=== PATIENT | male | born 1955 | race Caucasian/White ===

== ENCOUNTER 2018-07-26 18:43 | Inpatient (IN) | payer OTHER ==
[~2018-07-26] VITALS: Ht 188 cm; Wt 120.2 kg
--- NOTE | ~2018-07-26 | EKG ---
[address] [address] ELECTROCARDIOGRAM REPORT Name: MUKUL VENTURA JR Room #: 219-[facility] IN .R.#: [id number] Admission: 07/26/18 Attend Phys: Maye Shepherd Discharge: 07/29/18 Date of : 51 Report #: [id number] THIS REPORT FOR: //name// [facility] Test Date: 2018-07-28 Test Time: 11:52:48 Pat Name: MUKUL VENTURA Department: Room: 219 P Gender: M Rail Gang Supervisor: KRISTEL : 1955 Requested By: Maye Shepherd Order Number: [id number] MD: Luis Enrique Timmons Measurements Intervals Leon Rate: 77 P: KS: QRS: -67 QRSD: 167 T: -3 QT: 410 QTc: 465 Interpretive Statements Atrial fibrillation RBBB and LAFB Compared to ECG 06/24/2018 10:37:07 Electronically Signed On 08-02-2018 16:51:33 CDT by Luis Enrique Timmons [email or web address] <ELECTRONICALLY SIGNED> By: Luis Enrique Timmons MD 08/02/18 165 115 115 Luis Enrique Timmons MD /LAURA
--- NOTE | ~2018-07-26 | EKG ---
[address] [address] ELECTROCARDIOGRAM REPORT Name: MUKUL VENTURA Room #: 219-P [facility] IN ..#: [id number] Admission: 07/26/18 Attend Phys: Maye Shepherd Discharge: 07/29/18 Date of : 51 Report #: [id number] THIS REPORT FOR: //name// [facility] ED Test Date: 2018-07-26 Test Time: 19:18:44 Pat Name: MUKUL VENTURA Department: Room: [facility] Gender: M Sample Puller: MZOOK : 1955 Requested By: Bogdan Varela Order Number: [id number] MD: Luis Enrique Timmons Measurements Intervals [place] Rate: 94 P: NE: QRS: -74 QRSD: 163 T: 79 QT: 388 QTc: 486 Interpretive Statements Atrial fibrillation RBBB and LAFB Compared to ECG 06/24/2018 10:37:07 No significant changes Electronically Signed On 07-30-2018 14:39:54 CDT by Luis Enrique Timmons [email or web address] <ELECTRONICALLY SIGNED> By: Luis Enrique Timmons MD 07/30/18 1439 17 17 Luis Enrique Timmons MD /LAURA
--- NOTE | ~2018-07-26 | 2DMMODE ---
[facility] [place] [address] 2 D/M-MODE ECHOCARDIOGRAM Name: MUKUL VENTURA Room #: 251-P ADM IN M.R.#: [id number] Admission: 07/26/18 Attend Phys: Maye Whaley Discharge: Date of : 51 Date of Service: 07/27/18 1132 Report #: [id number] THIS REPORT FOR: //name// APPROVED REPORT Study performed: 07/27/2018 10:04:09 EXAM: Comprehensive 2D, Doppler, and color-flow Echocardiogram Patient Location: ICU Room #: [facility] Status: routine BSA: 2.45 HR: 69 bpm BP: 119/105 mmHg Other Information Study Quality: Adequate Indications ICD: Syncope Tricuspid Valve TR Peak Mario.: 2.49 m/s TR Peak Gr.: 24.78 mmHg PA Pressure: 30.00 mmHg Left Ventricle The left ventricle is normal size. There is normal left ventricular wall thickness. Left ventricular ejection fraction is moderately decreased. LVEF is 35%. Right Ventricle The right ventricle is normal size. The right ventricular systolic function is normal. Device lead is present in the right ventricle. Atria Left atrium is dilated. Right atrium is dilated. Device lead is present in the right atrium. Tricuspid Valve There is mild tricuspid regurgitation. The right atrial pressure is estimated at mmHg. There is mild pulmonary hypertension. [facility] [address] [place] [address] 2 D/M-MODE ECHOCARDIOGRAM Name: MUKUL VENTURA JR Room #: 251-P ADM IN M.R.#: [id number] Admission: 07/26/18 Attend Phys: Maye Whaley Discharge: Date of : 51 Date of Service: 07/27/18 1132 Report #: [id number] IVC is not well visualized. Pericardium Trace pericardial effusion. <Conclusion> The left ventricle is normal size. LVEF is 35-40%. The right ventricular systolic function is normal. Device lead is present in the right ventricle. Left atrium is dilated. Right atrium is dilated. Device lead is present in the right atrium. There is mild tricuspid regurgitation. The right atrial pressure is estimated at mmHg. There is mild pulmonary hypertension. Trace pericardial effusion. <ELECTRONICALLY SIGNED> By: Ceasar Cano MD 07/27/18 1132 31 31 Ceasar Cano MD /INF
[~2018-07-26 18:43] MED LIST: ANUSOL-HC25 MG RECTAL; ASPIRIN81 M2 PO; AUGMENTIN 875875 MG PO; CARVEDILOL12.5 MG PO; CARVEDILOL25 MG PO; CARVEDILOL6.25 MG PO; COREG25 MG PO; DIGOXIN125 MCG PO; LISINOPRIL2.5 MG PO; NOHOMEMEDICATIONS; NORCO 5-325 TA1 EACH PO; OXYCODONE HCL15 MG; PACERONE 200 M200 M1 PO; PRINIVIL5 MG PO; SPIRONOLACTONE25 M1 PO; TYLENOL325 MG PO; VITAMIN B-12500 MCG PO; XARELTO20 MG PO
[2018-07-26 18:53] VITALS: BP 117/67
[2018-07-26] MEDS ORDERED: CARVEDILOL6.25 M1 PO (19:03)
[2018-07-26] MEDS ORDERED: LISINOPRIL5 MG PO (19:03)
[2018-07-26] MEDS ORDERED: XARELTO20 MG PO (19:03)
[2018-07-26] MEDS ORDERED: CLONAZEPAM 0.50.5 M1 PO (19:03)
[2018-07-26 19:22] LABS: ABSOLUTE NEUTROPHILS 5.1 thou/uL (1.4-8.2); EOSINOPHILS 1.5 % (0.0-3.0); HEMATOCRIT 41.2 % (42.0-52.0); HEMOGLOBIN 14.5 gm/dL (14.0-18.0); LYMPHOCYTES 20.7 % (24.0-44.0); MCH 35.4 pg (26.0-34.0); MCHC 35.1 g/dL (28.0-37.0); MCV 100.9 fL (80.0-100.0); MONOCYTES 7.5 % (1.0-8.0); PLATELET COUNT 134 thou/uL (150-400); POLYS 69.3 % (36.0-66.0); RBC 4.08 mil/uL (4.50-6.00); RDW 14.5 % (10.5-14.5); WBC 7.3 thou/uL (4.0-11.0)
[2018-07-26 19:31] LABS: ANION GAP 11 mmol/L (7-16); BUN 13 mg/dL (7-18); CALCIUM 8.7 mg/dL (8.5-10.1); CHLORIDE 108 mmol/L (98-107); CO2 26 mmol/L (21-32); CREATININE 1.9 mg/dL (0.7-1.3); GLUCOSE 134 mg/dL (74-106); POTASSIUM 4.1 mmol/L (3.5-5.1); SODIUM 145 mmol/L (136-145)
[2018-07-26 19:39] LABS: ALBUMIN 3.5 g/dL (3.4-5.0); MAGNESIUM 2.1 mg/dL (1.8-2.4); SGOT 29 U/L (15-37); SGPT 50 U/L (30-65); TROPONIN-I <0.06 ng/mL (<0.06)
[2018-07-27] VITALS (8 sets, daily range): BP systolic 99–141; BP diastolic 58–105
[2018-07-27] MEDS ORDERED: B-121000 MC2 PO (00:01)
[2018-07-27 06:53] LABS: CALCIUM 8.4 mg/dL (8.5-10.1); CREATININE 1.5 mg/dL (0.7-1.3); POTASSIUM 3.8 mmol/L (3.5-5.1)
[2018-07-27 11:50] LABS: DIGOXIN 0.5 ng/mL (0.9-2.0)
[2018-07-28 04:19] LABS: ALBUMIN 3.2 g/dL (3.4-5.0); CALCIUM 8.5 mg/dL (8.5-10.1); CREATININE 1.2 mg/dL (0.7-1.3); PHOSPHORUS 3.7 mg/dL (2.5-4.9); POTASSIUM 4.1 mmol/L (3.5-5.1)
[2018-07-28 04:43] VITALS: BP 112/57
[2018-07-28 07:52] VITALS: BP 131/78
[2018-07-28] MEDS ORDERED: LISINOPRIL2.5 MG PO (08:47)
[2018-07-28 09:50] VITALS: BP 131/78
[2018-07-28 11:39] VITALS: BP 142/90
[2018-07-28 12:11] LABS: BE(vivo) 0.4 mmol/L (-2 to +3); HCO3 24.4 mmol/L (22.0-26.0); PCO2 37.1 mmHg (35.0-45.0); PO2 75.3 mmHg (80.0-100.0); pH 7.435 (7.360-7.450); sO2 95.6 % (92.0-98.0)
[2018-07-28 14:56] VITALS: BP 154/87
[2018-07-29 03:28] VITALS: BP 98/54
[2018-07-29 06:00] VITALS: BP 109/49
[2018-07-29 07:05] VITALS: BP 114/65
[2018-07-29 11:59] VITALS: BP 136/80
== END 2018-07-29 13:22 | disposition home or self-care (01) | DRG 682 ==
LOC: ER 18:43 → EROBS 19:55 → ICU 19:55 → 2N 07-27 15:24 → ENTRNSPT 07-29 13:01 → EDTRNSPTSTS 07-29 13:12 → 2N 07-29 13:22
PROVIDERS: Emergency Medicine; Hospitalist; Nurse Practitioner Family
DX: N17.9 Acute kidney failure, unspecified (principal); E43 Unspecified severe protein-calorie malnutrition; I42.9 Cardiomyopathy, unspecified; I50.9 Heart failure, unspecified; E86.0 Dehydration; F41.9 Anxiety disorder, unspecified; I11.0 Hypertensive heart disease with heart failure; I48.2 Chronic atrial fibrillation; R07.9 Chest pain, unspecified; D75.89 Other specified diseases of blood and blood-forming organs; G62.9 Polyneuropathy, unspecified; I25.10 Atherosclerotic heart disease of native coronary artery without angina pectoris; Z86.718 Personal history of other venous thrombosis and embolism; Z79.01 Long term (current) use of anticoagulants; Z79.899 Other long term (current) drug therapy; Z88.5 Allergy status to narcotic agent; Z82.49 Family history of ischemic heart disease and other diseases of the circulatory system; Z83.3 Family history of diabetes mellitus; Z68.34 Body mass index [BMI] 34.0-34.9, adult
CPT/HCPCS: 10081

== ENCOUNTER → 2019-01-19 | Outpatient (CLI) | payer OTHER ==
[~2019-01-19] MED LIST changes: +B-121000 MC2 PO; +CARVEDILOL6.25 M1 PO; +CLONAZEPAM 0.50.5 M1 PO; +LISINOPRIL5 MG PO
--- NOTE | 2019-01-19 10:03 | 2DMMODE ---
[facility] [place] [address] 2 D/M-MODE ECHOCARDIOGRAM Name: MUKUL VENTURA Room #: REG [facility]#: [id number] ������������� Admission: 01/19/19 ������������� Attend Phys: RICHIE Pina Discharge: ��� ������������� ��� Date of : 51 Date of Service: 01/19/19 1002 �� Report #: [id number] �������� ��������������������������������������������[id number] THIS REPORT FOR: //name// APPROVED REPORT Study performed: 01/19/2019 09:20:32 EXAM: Limited 2D, Doppler, and color-flow Echocardiogram Patient Location: Out-Patient Status: routine BSA: 2.51 HR: 62 bpm BP: 138/70 mmHg Rhythm: Atrial Fibrillation Other Information Study Quality: Adequate Indications Cardiomyopathy, Afib, ICD. 2D Dimensions IVSd: 11.39 (7-11mm) LVDd: 55.16 mm PWd: 10.05 (7-11mm) LVDs: 42.17 (25-40mm) Aortic Valve AoV Peak Mario.: 1.15 m/s AO Peak Gr.: 5.33 mmHg Tricuspid Valve TR Peak Mario.: 2.50 m/s RAP Estimate: 10.00 mmHg TR Peak Gr.: 25.01 mmHg PA Pressure: 35.00 mmHg Left Ventricle The left ventricle is normal size. There is normal left ventricular wall thickness. Left ventricular systolic function is moderately decreased. LVEF is 35-40%. Right Ventricle Right ventricle is dilated. Right ventricle is mildly hypokinetic. Device lead is present in the right ventricle. [facility] [address] [place] [address] 2 D/M-MODE ECHOCARDIOGRAM Name: MUKUL VENTURA Room #: REG [facility]#: [id number] ������������� Admission: 01/19/19 ������������� Attend Phys: RICHIE Pina Discharge: ��� ������������� ��� Date of : 51 Date of Service: 01/19/19 1002 �� Report #: [id number] �������� ��������������������������������������������[id number] Atria Left atrium is dilated. Right atrium is dilated. Aortic Valve Aortic valve is trileaflet. No aortic regurgitation is present. There is no aortic valvular stenosis. Mitral Valve The mitral valve is normal in structure. Moderate mitral regurgitation. Tricuspid Valve The tricuspid valve is normal in structure. Moderate tricuspid regurgitation. Estimated PAP is 35mmHg. Great Vessels IVC is dilated and collapses >50% with inspiration. Pericardium Trivial amount of pericardial fluid noted. <Conclusion> The left ventricle is normal size. LVEF is 35-40%. Right ventricle is dilated. Right ventricle is mildly hypokinetic. Device lead is present in the right ventricle. Left atrium is dilated. Right atrium is dilated. Aortic valve is trileaflet. The mitral valve is normal in structure. Moderate mitral regurgitation. The tricuspid valve is normal in structure. Moderate tricuspid regurgitation. Estimated PAP is 35mmHg. Trivial amount of pericardial fluid noted. ��������������������������������������������� <ELECTRONICALLY SIGNED> ���������������������������������������� By: Ceasar Cano MD ��������������������������������������������� 01/19/19 1002 1002 1002 Ceasar Cano MD /INF
== END ==
LOC: CV 08:38
DX: I08.1 Rheumatic disorders of both mitral and tricuspid valves (principal); I42.8 Other cardiomyopathies; I11.0 Hypertensive heart disease with heart failure; I50.20 Unspecified systolic (congestive) heart failure; I25.10 Atherosclerotic heart disease of native coronary artery without angina pectoris; I48.91 Unspecified atrial fibrillation

== ENCOUNTER 2019-02-16 11:49 | Emergency (ER) | payer OTHER ==
[~2019-02-16] VITALS: Ht 188 cm; Wt 125.2 kg
[2019-02-16 12:12] LABS: HEMATOCRIT 41.1 % (42.0-52.0); HEMOGLOBIN 14.3 gm/dL (14.0-18.0); MCH 34.1 pg (26.0-34.0); MCHC 34.7 g/dL (28.0-37.0); MCV 98.1 fL (80.0-100.0); RBC 4.19 mil/uL (4.50-6.00); RDW 13.9 % (10.5-14.5); WBC 5.9 thou/uL (4.0-11.0)
[2019-02-16 12:20] LABS: ANION GAP 9 mmol/L (7-16); BUN 23 mg/dL (7-18); CALCIUM 7.9 mg/dL (8.5-10.1); CHLORIDE 101 mmol/L (98-107); CO2 25 mmol/L (21-32); CREATININE 1.6 mg/dL (0.7-1.3); GLUCOSE 127 mg/dL (74-106); POTASSIUM 4.9 mmol/L (3.5-5.1); SODIUM 135 mmol/L (136-145)
[2019-02-16 12:28] LABS: ALBUMIN 3.7 g/dL (3.4-5.0); SGOT 27 U/L (15-37); SGPT 41 U/L (30-65); TOTAL BILIRUBIN 0.9 mg/dL (<0.1-1.0); TOTAL PROTEIN 6.9 g/dL (6.4-8.2); TROPONIN-I <0.06 ng/mL (<0.06)
[2019-02-16 12:40] VITALS: BP 110/56
[2019-02-16] MEDS ORDERED: CARVEDILOL12.5 MG PO ×2 (13:09→13:10)
[2019-02-16] MEDS ORDERED: LASIX 20 MG TAB20 MG (13:11)
[2019-02-16] MEDS ORDERED: LIDOCAINE1 EACH TRANSDERM (13:13)
--- NOTE | 2019-02-17 09:18 | EKG ---
[address] [address] [facility] [place] [address] ELECTROCARDIOGRAM REPORT Name: MUKUL VENTURA [id number] ������������������ Admission: 02/16/19 ������������������ Attend Phys: Discharge: 02/16/19 ������������������ Date of : 51 Report #: [id number] ����������������������������������������������������������������� [id number] THIS REPORT FOR: //name// [facility] ED Test Date: 2019-02-16 Test Time: 11:54:02 Pat Name: MUKUL VENTURA Department: Room: Gender: M Imaging Technician: BOB : 1955 Requested By: Kelsey Garcia Order Number: [id number] MD: Phill Juarez Measurements Intervals [place] Rate: 78 P: [place]: QRS: -78 QRSD: 163 T: -9 QT: 442 QTc: 504 Interpretive Statements Atrial fibrillation Right bundle branch block Left anterior hemiblock Compared to ECG 07/28/2018 11:52:48 No significant change was found Electronically Signed On 02-17-2019 9:17:51 CDT by Phill Juarez [email or web address] ��������������������������������������������� <ELECTRONICALLY SIGNED> ���������������������������������������� By: Phill Juarez MD, [facility] ��������������������������������������������� 02/17/19 0917 1154 1154 Phill Juarez MD, FACC /EPI
== END 2019-02-16 13:25 | disposition home or self-care (01) ==
LOC: ER 11:49
PROVIDERS: Physician Assistant
DX: R07.89 Other chest pain (principal); E83.51 Hypocalcemia; I10 Essential (primary) hypertension; F41.9 Anxiety disorder, unspecified; I48.91 Unspecified atrial fibrillation; Z88.5 Allergy status to narcotic agent

== ENCOUNTER 2019-03-25 15:15 | Emergency (ER) | payer OTHER ==
[~2019-03-25] VITALS: Ht 188 cm; Wt 124.7 kg
[~2019-03-25 15:15] MED LIST changes: +LASIX 20 MG TAB20 MG; +LIDOCAINE1 EACH TRANSDERM
[2019-03-25 15:38] LABS: ABSOLUTE NEUTROPHILS 5.2 thou/uL (1.4-8.2); BASOPHILS 0.5 % (0.0-2.0); EOSINOPHILS 1.9 % (0.0-3.0); HEMOGLOBIN 14.7 gm/dL (14.0-18.0); LYMPHOCYTES 23.4 % (24.0-44.0); MCH 33.8 pg (26.0-34.0); MCHC 34.3 g/dL (28.0-37.0); MCV 98.5 fL (80.0-100.0); MONOCYTES 8.3 % (1.0-8.0); PLATELET COUNT 150 thou/uL (150-400); POLYS 65.9 % (36.0-66.0); RBC 4.37 mil/uL (4.50-6.00); RDW 14.2 % (10.5-14.5)
[2019-03-25 15:44] LABS: ANION GAP 10 mmol/L (7-16); BUN 22 mg/dL (7-18); CALCIUM 8.9 mg/dL (8.5-10.1); CHLORIDE 101 mmol/L (98-107); CO2 28 mmol/L (21-32); CREATININE 1.6 mg/dL (0.7-1.3); GLUCOSE 109 mg/dL (74-106); POTASSIUM 4.6 mmol/L (3.5-5.1); SODIUM 139 mmol/L (136-145)
[2019-03-25 15:53] LABS: TROPONIN-I <0.06 ng/mL (<0.06)
[2019-03-25 17:46] VITALS: BP 146/93
--- NOTE | 2019-03-27 22:31 | EKG ---
[address] [address] ELECTROCARDIOGRAM REPORT Name: MUKUL VENTURA [facility] [id number] ������������������ Admission: 03/25/19 ������������������ Attend Phys: Discharge: 03/25/19 ������������������ Date of : 51 Report #: [id number] ����������������������������������������������������������������� [id number] THIS REPORT FOR: //name// [facility] ED Test Date: 2019-03-25 Test Time: 15:22:20 Pat Name: MUKUL VENTURA Department: Room: Gender: M Spud Sorter: KKODJOVI : 1955 Requested By: Agustín Kellogg Order Number: [id number] MD: Luis Enrique Timmons Measurements Intervals [place] Rate: 78 P: MS: QRS: -75 QRSD: 169 T: 31 QT: 439 QTc: 501 Interpretive Statements Atrial fibrillation RBBB and LAFB Compared to ECG 02/16/2019 11:54:02 No significant changes Electronically Signed On 03-27-2019 22:31:40 CDT by Luis Enrique Timmons [email or web address] ��������������������������������������������� <ELECTRONICALLY SIGNED> ���������������������������������������� By: Luis Enrique Timmons MD ��������������������������������������������� 03/27/19 2231 21 21 Luis Enrique Timmons MD /LAURA
== END 2019-03-25 17:48 | disposition home or self-care (01) ==
LOC: ER 15:15
PROVIDERS: Emergency Medicine
DX: R07.89 Other chest pain (principal); F41.9 Anxiety disorder, unspecified; I10 Essential (primary) hypertension; G62.9 Polyneuropathy, unspecified; I48.91 Unspecified atrial fibrillation; Z86.718 Personal history of other venous thrombosis and embolism; Z88.5 Allergy status to narcotic agent

== ENCOUNTER 2019-09-06 09:50 | Inpatient (IN) | payer OTHER ==
[~2019-09-06] VITALS: Ht 188 cm; Wt 111.2 kg
[2019-09-06 09:54] VITALS: BP 122/75
[2019-09-06 10:37] LABS: BE(vivo) -0.7 mmol/L (-2 to +3); HCO3 22.6 mmol/L (22.0-26.0); PCO2 32.8 mmHg (35.0-45.0); PO2 56.9 mmHg (80.0-100.0); pH 7.457 (7.360-7.450); sO2 91.3 % (92.0-98.0)
[2019-09-06 10:47] LABS: HEMATOCRIT 31.2 % (42.0-52.0); MCH 30.3 pg (26.0-34.0); MCHC 32.1 g/dL (28.0-37.0); MCV 94.5 fL (80.0-100.0); PLATELET COUNT 557 thou/uL (150-400); RDW 21.3 % (10.5-14.5); WBC 9.8 thou/uL (4.0-11.0)
[2019-09-06 11:00] LABS: ANION GAP 8 mmol/L (7-16); APTT 30.3 Seconds (24.5-32.8); BUN 9 mg/dL (7-18); CALCIUM 8.1 mg/dL (8.5-10.1); CHLORIDE 106 mmol/L (98-107); CO2 27 mmol/L (21-32); CREATININE 1.1 mg/dL (0.7-1.3); GLUCOSE 102 mg/dL (74-106); INR 1.1; POTASSIUM 4.2 mmol/L (3.5-5.1); PROTIME 11.3 Seconds (9.3-11.4); SODIUM 141 mmol/L (136-145)
[2019-09-06 11:10] LABS: ALBUMIN 2.4 g/dL (3.4-5.0); MAGNESIUM 1.6 mg/dL (1.8-2.4); SGOT 23 U/L (15-37); SGPT 20 U/L (30-65); TOTAL BILIRUBIN 0.4 mg/dL (<0.1-1.0); TOTAL PROTEIN 7.1 g/dL (6.4-8.2); TROPONIN-I <0.06 ng/mL (<0.06)
[2019-09-06 11:31] LABS: METAMYELOCYTES 1 %; MYELOCYTES 2 %; NUCLEATED RBCS 1 /100WBC
[2019-09-06 11:32] LABS: ANISOCYTOSIS 2+
[2019-09-06 11:33] LABS: POLYCHROMASIA OCCASIONAL
[2019-09-06] MEDS ORDERED: ACETAMINOPHEN650 M5 PO (11:35)
[2019-09-06] MEDS ORDERED: ACETYLCYST200 MG/1 M INH (11:36)
[2019-09-06] MEDS ORDERED: CALCIUM500 MG PO (11:37)
[2019-09-06] MEDS ORDERED: BUPROPION XL150 MG PO (11:37)
[2019-09-06] MEDS ORDERED: CATAPRES-TTS 20.2 MG TRANSDERM (11:38)
[2019-09-06] MEDS ORDERED: ELIQUIS5 MG PO (11:38)
[2019-09-06] MEDS ORDERED: IPRAT-ALBUT 0.5-3 ML (11:39)
[2019-09-06] MEDS ORDERED: MELATONIN3 M1 PO (11:40)
[2019-09-06] MEDS ORDERED: MULTI VITAMIN1 EACH PO (11:41)
[2019-09-06] MEDS ORDERED: OMEPRAZOLE 20 M20 M1 PO (11:41)
[2019-09-06] MEDS ORDERED: OXYCODONE HCL E10 MG PO (11:42)
[2019-09-06] MEDS ORDERED: B-1100 MG PO (11:43)
[2019-09-06 11:53] VITALS: BP 133/74
[2019-09-06 14:28] VITALS: BP 136/64
[2019-09-06 14:40] VITALS: BP 134/86
[2019-09-06 15:24] LABS: URINE BILIRUBIN NEGATIVE (Negative); URINE BLOOD NEGATIVE (Negative); URINE CLARITY CLEAR; URINE COLOR YELLOW; URINE GLUCOSE-RANDOM* NEGATIVE (Negative); URINE KETONES NEGATIVE (Negative); URINE LEUKOCYTES-REFLEX NEGATIVE (Negative); URINE NITRITE-REFLEX NEGATIVE (Negative); URINE PROTEIN (DIPSTICK) NEGATIVE (Negative); URINE SPECIFIC GRAVITY <= 1.005 (1.005-1.035); URINE UROBILINOGEN 0.2 E.U./dl (0.2-1.0)
[2019-09-06] MEDS ORDERED: PERIDEX15 ML MM (15:26)
[2019-09-06] MEDS ORDERED: GLUCAGEN1 M2 IM (15:30)
[2019-09-06] MEDS ORDERED: JEVITY 1.2 CAL237 ML PER TUBE (15:32)
--- NOTE | 2019-09-06 16:40 | NUR ---
WOUND CONSULT; THIS PATIENT CAME FROM ANOTHER FACILITY WITH A WOUND VAC DRESSING IN PLACE. THE WOUND BED IS PALE AND NON ODOROUS. THERE IS UNDERMINING ALMOST CIRCUMFERENTIALLY. THE WOUND MEASURES APPROX 6.5 X 6 X 4 CM. (PIC TAKEN) RECOMMENDATIONS; CONSULT DR AISSATOU MONTANEZ. FOR NOW PACK WITH AQUACEL AG, COVER WITH ABD, SECURE WITH TAPE DAILY/PRN. DISCUSSED WITH MORALES
[2019-09-06 20:14] VITALS: BP 92/65
[2019-09-06 23:40] VITALS: BP 124/81
[2019-09-07 03:38] VITALS: BP 114/73
[2019-09-07 05:03] LABS: HEMATOCRIT 28.9 % (42.0-52.0); HEMOGLOBIN 9.4 gm/dL (14.0-18.0); MCH 30.9 pg (26.0-34.0); MCHC 32.4 g/dL (28.0-37.0); MCV 95.3 fL (80.0-100.0); RBC 3.03 mil/uL (4.50-6.00); RDW 21.3 % (10.5-14.5); WBC 8.8 thou/uL (4.0-11.0)
--- NOTE | 2019-09-07 05:17 | NUR ---
ASSUMED PT CARE AT 1900. FAMILY AT BEDSIDE. PT WAS VERY WEAK AND REQUIRED ASSIST X2. PT IS ABLE TO USE BSC AND NEEDS 2L OXYGEN FOR COMFORT. PT HAS BEEN NPO FOR PROCEDURE. PT SLEPT THRU NIGHT AND WILL CONTINUE TO MONITOR PER POC.
[2019-09-07 05:26] LABS: CALCIUM 8.4 mg/dL (8.5-10.1); CREATININE 1.1 mg/dL (0.7-1.3); POTASSIUM 3.5 mmol/L (3.5-5.1)
[2019-09-07 07:31] VITALS: BP 146/88
--- NOTE | 2019-09-07 08:05 | EKG ---
[address] [place] [address] ELECTROCARDIOGRAM REPORT Name: MUKUL VENTURA Room #: 213-P ADM IN M.R.#: [id number] Admission: 09/06/19 Attend Phys: Luis Bustos MD Discharge: Date of : 51 Report #: [id number] THIS REPORT FOR: //name// [facility] ED Test Date: 2019-09-06 Test Time: 09:57:56 Pat Name: MUKUL VENTURA Department: Room: 213 Gender: M Scanning Supervisor: KAYDEN : 1955 Requested By: Shon Dye Order Number: [id number] MD: Phill Juarez Measurements Intervals [place] Rate: 102 P: NV: QRS: -66 QRSD: 174 T: 2 QT: 422 QTc: 550 Interpretive Statements Atrial fibrillation RBBB and LAFB Baseline wander in lead(s) V5 Compared to ECG 03/25/2019 15:22:20 No significant changes Electronically Signed On 09-07-2019 8:04:49 CDT by Phill Juarez [email or web address] <ELECTRONICALLY SIGNED> By: Phill Juarez MD, [facility] 09/07/19 0804 0957 0957 Phill Juarez MD, [facility] /EPI
--- NOTE | 2019-09-07 12:19 | 2DMMODE ---
[facility] [place] [address] 2 D/M-MODE ECHOCARDIOGRAM Name: MUKUL VENTURA Room #: 213-P ADM IN .R.#: [id number] Admission: 09/06/19 Attend Phys: Gregorio Golden Discharge: Date of : 51 Report #: [id number] THIS REPORT FOR: //name// APPROVED REPORT Study performed: 09/07/2019 09:09:14 EXAM: Comprehensive 2D, Doppler, and color-flow Echocardiogram Patient Location: In-Patient Room #: 213 Status: routine BSA: 2.27 HR: 86 bpm BP: 146/88 mmHg Rhythm: Atrial Fibrillation Other Information Study Quality: Good Indications Cardiomyopathy CHF, Afib, SOA, ICD 2D Dimensions RVDd: 52.25 mm IVSd: 11.61 (7-11mm) LVOT Diam: 20.92 (18-24mm) LVDd: 58.40 mm PWd: 11.83 (7-11mm) Ascending Ao: 39.72 (22-36mm) LVDs: 44.60 (25-40mm) Aortic Root: 33.39 mm IVC: 29.00 mm Volumes Left Atrial Volume (Systole) Single Plane 4CH: 146.52 mL Single Plane 2CH: 168.08 mL LA ESV Index: 80.00 mL/m2 Aortic Valve AoV Peak Mario.: 1.05 m/s AO Peak Gr.: 4.42 mmHg LVOT Max P.60 mmHg LVOT Max V: 0.81 m/s ISELA Vmax: 2.63 cm2 Pulmonary Valve PV Peak Mario.: 0.83 m/s PV Peak Gr.: 2.79 mmHg [facility] [place] [address] [place] [address] 2 D/M-MODE ECHOCARDIOGRAM Name: LORENZOMUKUL D Room #: 213-P [facility] IN [facility]#: [id number] Admission: 09/06/19 Attend Phys: Gregorio Golden Discharge: Date of : 51 Report #: [id number] Tricuspid Valve TR Peak Mario.: 2.47 m/s RAP Estimate: 10.00 mmHg TR Peak Gr.: 24.38 mmHg PA Pressure: 35.00 mmHg Left Ventricle Left ventricle is dilated. Borderline concentric left ventricular hypertrophy. Left ventricular ejection fraction is moderate to severely decreased. LVEF is 35%. This study is not technically sufficient to allow evaluation of the LV diastolic function due to atrial fibrillation. Right Ventricle Right ventricle is moderately dilated. The right ventricular systolic function is normal. ICD lead is present in the right ventricle. Atria Left atrium is severely dilated. Right atrium is severely dilated. Aortic Valve The aortic valve is normal in structure. No aortic regurgitation is present. There is no aortic valvular stenosis. Mitral Valve The mitral valve is normal in structure. Moderate mitral regurgitation. No evidence of mitral valve stenosis. Tricuspid Valve The tricuspid valve is normal in structure. Moderate tricuspid regurgitation. Estimated PAP is 35mmHg. Pulmonic Valve Pulmonic valve is grossly normal in structure. Mild pulmonic regurgitation. Great Vessels The aortic root is normal in size. The ascending aorta is mildly dilated at 4.0cm. IVC is dilated and collapses >50% with inspiration. Pericardium Small pericardial effusion. Large pleural effusion. <Conclusion> [facility] [place] [address] 2 D/M-MODE ECHOCARDIOGRAM Name: MUKUL VENTURA Room #: 213-P ADM IN M.R.#: [id number] Admission: 09/06/19 Attend Phys: Gregorio Golden Discharge: Date of : 51 Report #: [id number] Left ventricle is dilated. LVEF is 35%. Right ventricle is moderately dilated. ICD lead is present in the right ventricle. Left atrium is severely dilated. Right atrium is severely dilated. The aortic valve is normal in structure. The mitral valve is normal in structure. Moderate mitral regurgitation. The tricuspid valve is normal in structure. Moderate tricuspid regurgitation. Estimated PAP is 35mmHg. Pulmonic valve is grossly normal in structure. Mild pulmonic regurgitation. The ascending aorta is mildly dilated at 4.0cm. Small pericardial effusion. Large pleural effusion. <ELECTRONICALLY SIGNED> By: Ceasar Cano MD 09/07/199 18 18 Ceasar Cano MD /INF
[2019-09-07 12:42] LABS: BF NUCLEATED CELLS 558; BF RBC 815; CLARITY HAZY; COLOR YELLOW; SOURCE THORACENTESIS; TOTAL VOLUME 57 mL
[2019-09-07 12:53] VITALS: BP 120/73
[2019-09-07 13:47] LABS: BF MACROPHAGE 27; BF NEUTROPHILS 5
--- NOTE | 2019-09-07 14:07 | NUR ---
WOUND CARE NOTE NPWT black granufoam bridge dressing applied to sacral wound, wound pinkish red w/ small amt yellow slough, periwound area intact, undermining area 4cm noted from 10:00 to 2:00, good seal noted at cont suction 125mmHG, pt cooperative, technical staff engineer informed of care
--- NOTE | 2019-09-07 16:47 | NUR ---
Met with patient who admits from [facility] were he has been rec skilled rehab care. patient admits with CHF. Patient reports his ins has authorized him to come to [facility]. 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 director of academic made rounds and noted patient did not want to return to [facility] and alerted SWS to visit with patient. Reviewed criteria for acute rehab unit. Sp with dtr who reports care at [facility] and issue. She requested facility send referrals to [facility] and reports she never heard back from them. She reports she really wants patient at another facility. Patient prev at [facility]. Dtr reports she did not choose [facility] casemgt notified her they had an accepting facility. [facility] to eval if candidate.
[2019-09-07 20:05] VITALS: BP 130/74
--- NOTE | 2019-09-07 20:26 | NUR ---
RECEIVED PT'S CARE AROUND 0730; PT. ON BED RESTING WITH EYES CLOSED; DURING ASSESSMENT PT. ST. FEELING SOME ANXIUOS DUE TO PROCEDURE; PHYSICIAN NOTIFIED; ORDER RECEIVED; THORACENTESIS PERFORM ON THE MORNING; PER REPORT FLUID DRAIN FROM L. SIDE; 2000 ML; NO HEMATOMA, NO DRAINAGE; NO C/O SOB; VS WNL; REQUESTED PRN PAIN MEDICATION EARLY ON THE EVENING; WOUND VAC ON PLACE; PRN PAIN MEDICATION GIVEN; RE-ASSESSMENT PT. CALM WANTED TO SLEEP; DURING SHIFT CHANGE; PT. C/O HEADACHE; DIZZINESS; VS WNL; BS WNL; CHECK CHARTING; ASSESSMENT CHARGED; FOLLOWING POC; PASSED ON REPORT;
--- NOTE | 2019-09-08 04:14 | NUR ---
ASSUMED PT CARE AT 1900. PT C/O PAIN IN BUTTOCK AREA WHERE WOUND VAC IS LOCATED. MEDICATION GIVEN WITH MINIMAL RELIEF. PT IS VERY WEAK IN LEFT LEG. PT HAD NO C/O SOB OR CHEST PAINS. PT SLEPT THRU NIGHT. WILL CONTINUE TO MONITOR PT PER POC.
[2019-09-08 04:30] VITALS: BP 117/63
[2019-09-08 05:24] LABS: HEMATOCRIT 30.9 % (42.0-52.0); HEMOGLOBIN 9.9 gm/dL (14.0-18.0); MCH 30.4 pg (26.0-34.0); MCV 94.9 fL (80.0-100.0); RBC 3.26 mil/uL (4.50-6.00); RDW 21.1 % (10.5-14.5); WBC 8.5 thou/uL (4.0-11.0)
[2019-09-08 05:38] LABS: CALCIUM 8.3 mg/dL (8.5-10.1); CREATININE 1.2 mg/dL (0.7-1.3); POTASSIUM 3.6 mmol/L (3.5-5.1)
[2019-09-08 06:00] VITALS: BP 113/71
--- NOTE | 2019-09-08 06:41 | NUR ---
AT ABOUT 0600, DURING 0600 ROUNDING, FOUND PT OUT OF BED ON THE FLOOR. PT TRIED TO GET OUT OF THE BED OVER THE BED RAILS. PT REPORTED THAT HE HIT HIS HEAD BUT DOES NOT HAVE A HEADACHE OR ANY OTHER PAIN. ASSESSMENT COMPLETED, VITAL SIGN WITHIN NORMAL RANGES FOR PT. PT ASSISTED BACK TO BED AND MADE COMFORTABLE. PT BED ALARM WAS ON DURING 0500 ROUNDING. UPON CHECKING WHY BED ALARM DID NOT GO OFF, IT WAS NOTICED THAT PT'S BED WAS OFF. TRIED TO TURN BED ON TO NO AVAIL. BED SOAP DRIER OPERATOR WAS THEN REMOVED AND BED WAS ABLE TO TURN ON. PT RESTING IN BED. FREQUENT CHECKS. BED ALARM ON. FALL PRECAUTIONS MAINATINED. CONTINUE TO MONITOR. FAMILY AND PHYSICIAN NOTIFIED.
[2019-09-08 07:00] VITALS: BP 121/70
[2019-09-08 07:36] VITALS: BP 125/72
[2019-09-08 09:26] LABS: SOURCE THORACENTESIS
--- NOTE | 2019-09-08 13:56 | HC ---
[facility] [place] [address] CONSULTATION Name: LORENZOMUKULALDEN Landeros JR Room #: 213-P ADM IN ..#: [id number] Admission: 09/06/19 Attend Phys: Luis Bustos MD Discharge: Date of : 51 Report #: [id number] THIS REPORT FOR: //name// CC: [facility]os [facility] DATE OF SERVICE: 09/07/2019 CHIEF COMPLAINT: Stage 4 sacral pressure ulceration. HISTORY OF PRESENT ILLNESS: This is a 64-year-old male patient admitted to the hospital. He has a history of ischemic cardiomyopathy with an ejection fraction of 35%, admitted with shortness of breath and hypoxemia. He was noted to have a stage 4 sacral pressure ulceration. He has had previous wound VAC therapy. I have been asked to see him with regard to wound care. The patient can answer several questions. He apparently fell on 05/31/2019, he broke several ribs on the left, ruptured spleen and pancreas. He was hospitalized. He had a pleural effusion with 1.5 liters drained at that time. He has been at a penitentiary facility. It is unclear as to exactly when the sacral pressure ulcer began. PAST MEDICAL HISTORY: Positive for nonischemic cardiomyopathy, EF 35%, atrial fibrillation, status post pacemaker placement, history of pericardial effusion, history of rectal bleeding and acute kidney injury, hypertension, DVT, history of alcohol abuse. ALLERGIES: PENICILLIN AND MORPHINE. MEDICATIONS: Tylenol, ipratropium, albuterol, Eliquis, aspirin, Wellbutrin, Coreg, fentanyl, docusate sodium, Lasix, melatonin, ondansetron, Protonix, oxycodone, thiamine. SOCIAL HISTORY: Significant for alcohol abuse in the past. Currently, uses alcohol on "special occasions", never been a smoker. FAMILY HISTORY: Positive for coronary artery disease, diabetes in his father who is at age 64. REVIEW OF SYSTEMS: CONSTITUTIONAL: The patient denies fever, chills or weight loss. NEUROLOGICAL: The patient denies focal weakness, numbness or tingling. EYES: The patient denies visual changes, redness, or drainage. ENT: The patient denies earache, nasal drainage, or sore throat. CARDIOVASCULAR: The patient denies chest pain or palpitations or diaphoresis. PULMONARY: The patient does complain of shortness of breath, especially on exertion. GASTROINTESTINAL: The patient denies nausea or abdominal pain. [address] [address] CONSULTATION Name: MUKUL VENTURA Leti Room #: 213-P [facility] IN [facility]#: [id number] Admission: 09/06/19 Attend Phys: Luis Bustos MD Discharge: Date of : 51 Report #: [id number] ORTHOPEDIC: The patient is aware of the sacral pressure ulceration. Other systems in a 14-point review of systems are negative. PHYSICAL EXAMINATION: VITAL SIGNS: At this time include temperature 36.6, pulse 45, respiratory rate 18, blood pressure 146/88. GENERAL: This is a somewhat chronically ill-appearing male patient who appears to be in only minimal distress. HEENT: Head normocephalic. Nose and throat are clear. NECK: Supple. LUNGS: Diminished. HEART: Irregular. ABDOMEN: Soft, nontender. Back: Sacral region demonstrates what appears to be a stage 4 sacral pressure ulceration. It is relatively clean and granulating. We are close to bone with palpation, but I do not find any obvious spiculated or exposed bone or other deep structure at this time. NEUROLOGIC: The patient is alert and oriented. He appears to have symmetrical motor exam. LABORATORY DATA: White blood cell count 8.8 with hemoglobin 9.4. Sodium 140, potassium 3.5, chloride 105, CO2 of 29, BUN 8, creatinine 1.1, albumin is low at 2.4. CLINICAL IMPRESSION: 1. Stage 4 sacral pressure ulceration. 2. Acute on chronic hypoxemic respiratory failure and fluid overload. 3. Congestive heart failure. 4. Moderate protein-calorie malnutrition. 5. History of prior alcohol abuse. RECOMMENDATIONS: At this point in time, we will resume a wound VAC to the sacral ulceration. It does not appear that he needs debridement at this time. We will see how he does with the VAC therapy. He will need aggressive nutritional support to maximize wound healing. Recommend continuation of current medications and management of fluid overload. PT, OT as able. I appreciate being asked to see him in consultation. <ELECTRONICALLY SIGNED> By: Uli Hernandez MD 09/08/19 1356 1113 0041 Uli Hernandez MD /nt
[2019-09-08 14:06] LABS: BODY FLUID ALBUMIN 1.7 g/dL (Not Estab.); BODY FLUID AMYLASE 33 U/L (()); BODY FLUID GLUCOSE 105 mg/dL (()); BODY FLUID LDH 154 IU/L (()); BODY FLUID PROTEIN 3.7 g/dL (())
--- NOTE | 2019-09-08 16:06 | PATH ---
[facility] [address] [place] [address] PATHOLOGY RPT PROCEDURE Name: MUKUL VENTURA JR Room #: 213-P ADM IN .R.#: [id number] Admission: 09/06/19 Date of : 51 Discharge: Report #: [id number] Path Case #: [id number] Note [facility] Accession Number: [id number] TESTS RESULT FLAG UNITS REF RANGE LAB Clinician Provided Cytology Information No. of containers..01 Other (Miscellaneous) Source: PLEURAL FLUID DIAGNOSIS: 02 PLEURAL FLUID NEGATIVE FOR MALIGNANT CELLS. REACTIVE MESOTHELIAL CELLS ARE PRESENT. THIS INTERPRETATION INCLUDES EVALUATION OF A CELL BLOCK. Pathologist ICD10: 02 J90 Signed out by: Vanessa Jacobo MD, Pathologist NPI- [id number] Performed by: Mi Cordova Wireline Operator ([facility]) Gross description: 01 25ML, YELLOW, CLOUDY /LCS 11/08/1840 0000 Local FLAG LEGEND: L-Low Normal,H-High Normal,LL-Alert Low,HH-Alert High <-Panic Low,>-Panic High,A-Abnormal,AA-Critical Abnormal Performed at: [address] [place] [address] Azam Ware MD, [address] [address] Vanessa Jacobo MD, Specimen Comment: A courtesy copy of this report has been sent to [phone] Specimen Comment: Report sent to Performed at: [address], [place], [place] [id number] MD Azam Ware MD Phone: [phone]
--- NOTE | 2019-09-08 16:12 | NUR ---
FAXED REFERRAL TO [facility] SPOKE WITH PATRICK IN ADM SHE RECEIVED REFERRAL BUT WILL NOT BE ABLE TO ACCEPT. FAXED REFERRAL TO [facility] SPOKE WITH RON IN ADM SHE HAS NO BEDS AVAILABLE TIL NEXT WEEK. [facility]ED REFERRAL TO [facility] LEFT MSG WITH MILLI IN ADM AND RECEIVED CONFIRMATION. ANTICIPATE DC TOMORROW.
[2019-09-08 16:16] VITALS: BP 121/78
--- NOTE | 2019-09-08 17:36 | NUR ---
5N ip architect talked with the pt at bedside. He is not a candidate for acute rehab. Snf recommended by the care team. Dtr updated as well. JK no beds. [facility] declined referral. Connor to do onsite tomorrow. Dtr open to any other facilities in network with ins plan;does not want to return to [facility]. Pt to have peg removed in the or tomorrow. Will follow.
--- NOTE | 2019-09-08 19:48 | NUR ---
PATIENT CARE ASSUMED, ASSESSMENT CHARTED, PATIENT PASSED SWALLOW EVAL, C/O PAIN, FENTYNL GIVEN, NO NEEDS VOICED
[2019-09-09 02:31] VITALS: BP 121/78
[2019-09-09 04:10] VITALS: BP 120/69
[2019-09-09 05:34] LABS: CALCIUM 8.3 mg/dL (8.5-10.1); CREATININE 1.2 mg/dL (0.7-1.3); POTASSIUM 3.1 mmol/L (3.5-5.1)
--- NOTE | 2019-09-09 05:44 | NUR ---
ASSUMED PT CARE AT 1900. PT A/OX4, VITAL SIGNS STABLE, ASSESSMENT CHARTED. PAIN ADEQAUTELY MANAGED WITH PAIN MEDICATION. FALL PRECAUTIONS MAINTAINED. Q2T, FREQUENTCHECKS. PT NPO AFTER MIDNIGHT FOR GI PROCEDURE IN AM. PT RESTED WELL THRUGH THE NIGHT. PROGRESSING TOWARD PLAN OF CARE. WILL CONTINUE TO MONITOR.
[2019-09-09 08:00] VITALS: BP 117/69
--- NOTE | 2019-09-09 10:02 | NUR ---
WOUND CARE F/U rounding w/ Dickson Paul NP, assess sacral wound, healing, red granulating tissue, less slough present, plan to cont w/ NPWT, vac reapplied w/ black granufoam bridge dressing, good seal noted at 125mmHG cont suction, tolerated fairly well, conts w/ pain meds prn, cooperative, encouraged to off loading, turning as tolerated, staffing account manager informed of care
[2019-09-09 12:00] VITALS: BP 116/68
[2019-09-09] MEDS ORDERED: ENTRESTO 24 MG1 EACH PO (13:26)
[2019-09-09] MEDS ORDERED: COREG6.25 MG PO (13:26)
[2019-09-09] MEDS ORDERED: LORAZEPAM 0.50.5 MG PO (13:26)
[2019-09-09] MEDS ORDERED: ASPIR 8181 MG PO (13:26)
[2019-09-09] MEDS ORDERED: DIGOXIN125 MCG PO (13:26)
[2019-09-09] MEDS ORDERED: TORSEMIDE20 MG PO (13:26)
[2019-09-09] MEDS ORDERED: POTASSIUM20 PO (13:26)
[2019-09-09 16:00] VITALS: BP 99/60
--- NOTE | 2019-09-09 16:30 | NUR ---
Pt had peg removed in the or today. Connor tanner here to get clinical update and visit with the pt. Pt has used 12 snf days at [facility] 08/25 thru 09/06. They can accept the pt and submitted for ins auth. They prefer a Thursday admissions vs the and do not anticipate getting the auth in place this afternoon. They have ordered a wound vac. Dtr Jaymie updated. Connor tanner to contact the dtr to touch base.
--- NOTE | 2019-09-09 19:58 | NUR ---
ASSUMED CARE OF PT AT SHIFT CHANGE. ASSESSMENTS CHARTED. MEDS GIVEN PER JAN. VSS. A&OX4, FORGETFUL. C/O PAIN TREATED WITH IV MEDS. WOUND VAC PLACED BY WOUND CARE. HAD AN EGD TODAY AND PEG TUBE WAS SUCCESSFULLY REMOVED. PLAN TO DC ON THURSDAY TO FACILITY. WILL CONTINUE TO MONITOR AND FOLLOW POC.
[2019-09-09 20:28] VITALS: BP 93/56
[2019-09-10 03:24] LABS: CALCIUM 8.2 mg/dL (8.5-10.1); CREATININE 1.5 mg/dL (0.7-1.3); POTASSIUM 3.2 mmol/L (3.5-5.1)
--- NOTE | 2019-09-10 03:35 | NUR ---
A/O X 4.UP WITH ASSIST X 1-2.BM X 1.TYLENOL GIVEN FOR PAIN.SLEPT.MONITOR SHOWS AFIB.WILL CONTINUE POC.
[2019-09-10 04:39] VITALS: BP 108/54
[2019-09-10 07:45] VITALS: BP 98/61
[2019-09-10 11:26] VITALS: BP 76/47
[2019-09-10 11:51] VITALS: BP 80/58
--- NOTE | 2019-09-10 12:55 | NUR ---
PATIENT BP LOW. 74/48. DR. MARR NOTIFIED AND ORDERED BP MEDS ON HOLD AND 250 CC BOLUS TO GET SBP ABOVE 90.
[2019-09-10 16:12] VITALS: BP 90/55
--- NOTE | 2019-09-10 16:46 | NUR ---
PATIENT AOX4 AND PLEASANT TODAY. HE WAS VERY INTERESTED IN PT/OT VISIT AND WANTED TO MAKE SURE HE WAS ABLE TO KEEP UP HIS STRENGTH. UNFORTUNATELY, AT NOON BP DROPPED TO 74-48. PHYSICIAN WAS NOTIFIED AND BOLUS OF 250 NS WAS ORDERED. bP MEDICAITON WAS PUT ON HOLD. SBP IS NOW ABOVE 90. BERNADETTEN DID NOT REPORT ANY SIGNS OR SYMTPOMS DURING BP DROP. HOWEVER, HE WAS INSTRUCTED TO NOT GET OUT OF BED UNTILO BP RETURNED TO ALFONSO. NO FURTHER ISSUES. PATIENT RESTED WELL TODAY. A-FIB ON THE MONITOR.
[2019-09-10 20:07] VITALS: BP 82/52
--- NOTE | 2019-09-11 02:51 | NUR ---
ASSESSMENT: PT REMAIN ALERT AND ORIENT TIMES THREE. FAMILY MEMBERS WERE AT THE BEDSIDE AT THE BEGINNING OF THE SHIFT. PT C/O BUTTOCK PAIN. WOUND VAC NOTE TO BE TURNED ON BUT NOT OPERATING. WOUND VAC TURNED OFF AND DRESSING REINFORCED. STILL NOT OPERATING CORRECTLY. PT INSIST TO GET UP TO BSC FOR A BM. PT WAS REMINDED THT HIS BP WAS LOW AND IS WOULD BE BEST TO USE THE BEDPAN. WHILE THIS RN WAS IN ANOTHER PT'S ROOMM, THE TECH AND ANOTHER RN GOT PT UP TO THE BSC. PT HAD A LARGE BM AND WHEN GETTING PT FROM COM[facility] TO THE BED, HIS LEGS GAVE OUT FROM UNDER HIM. THIS RN AND THE TECH GUIDED THE PT TO THE FLOOR WITH THE GAIT BELT. HE DID NOT HARM HIMSELF AND DID NOT FALL. THE HOUSE SUP LIZ THOMAS WAS NOTIFIED OF THE AFOREMENTIONED DURING HER ROUTINE ROUNDING. PT WAS AGAIN REMINDED THAT HE NEEDS TO USE THE BED LIAO UNTIL HIS BP INCREASES AND HIS STRENGTH IN HIS LEGS ARE BETTER. SLOW PROGRESS TOWARDS DC GOALS, WILL CONTINUE TO MONITOR.
[2019-09-11 04:09] LABS: CALCIUM 8.3 mg/dL (8.5-10.1); CREATININE 1.5 mg/dL (0.7-1.3); POTASSIUM 3.7 mmol/L (3.5-5.1)
[2019-09-11 05:47] VITALS: BP 90/49
[2019-09-11 08:57] VITALS: BP 108/71
[2019-09-11 13:20] VITALS: BP 80/45
[2019-09-11 16:21] VITALS: BP 105/72
--- NOTE | 2019-09-11 16:30 | NUR ---
ASSUMMED PT CARE AT APPROXIMATELY 0700. PT A&O X4. ASSESSMENT CHARTED. FALL PRECAUTIONS IN PLACE. PT DENIES CHEST PAIN. PT DENIES SOB. PT STATES HE HAS BACK PAIN. PT RECEIVED ANALGESICS. PT STATED ANALGESICS DID NOT DECREASE PAIN. DR NOTIFIED. DR ADDED NEW MED TO HELP C PAIN. PT STATED HE HAD A DECREASE IN PAIN. WOUND VAC IN PLACE. PT AND FAMILY EDUCATED ABOUT POC. PT AND FAMILY STATED UNDERSTANDING AND DENIED HAVING FURTHER QUESTIONS. PT COMFORTABLE IN BED. VITAL SIGNS STABLE. PT DENIES HAVING FURTHER CONCERNS.
[2019-09-11 20:23] VITALS: BP 105/60
[2019-09-12 04:05] VITALS: BP 114/59
[2019-09-12 07:18] VITALS: BP 116/64
[2019-09-12 11:23] VITALS: BP 113/68
--- NOTE | 2019-09-12 14:03 | NUR ---
sp with Dr Weller patient with no dc today. Believe he complained of chest pain. Updated dtr.
[2019-09-12 14:11] LABS: ABSOLUTE NEUTROPHILS 3.5 thou/uL (1.4-8.2); HEMATOCRIT 37.9 % (42.0-52.0); HEMOGLOBIN 12.1 gm/dL (14.0-18.0); LYMPHOCYTES 50.8 % (24.0-44.0); MCH 30.3 pg (26.0-34.0); MCHC 31.9 g/dL (28.0-37.0); MCV 94.8 fL (80.0-100.0); MONOCYTES 7.1 % (1.0-8.0); PLATELET COUNT 581 thou/uL (150-400); POLYS 36.1 % (36.0-66.0); RDW 20.1 % (10.5-14.5); WBC 9.8 thou/uL (4.0-11.0)
[2019-09-12 14:25] LABS: ANION GAP 6 mmol/L (7-16); BUN 12 mg/dL (7-18); CALCIUM 9.6 mg/dL (8.5-10.1); CHLORIDE 101 mmol/L (98-107); CO2 29 mmol/L (21-32); CREATININE 1.2 mg/dL (0.7-1.3); GLUCOSE 107 mg/dL (74-106); POTASSIUM 4.4 mmol/L (3.5-5.1); SODIUM 136 mmol/L (136-145)
[2019-09-12 14:28] LABS: INR 1.1; PROTIME 11.1 Seconds (9.3-11.4)
[2019-09-12 14:35] LABS: ALBUMIN 2.5 g/dL (3.4-5.0); SGOT 22 U/L (15-37); SGPT 21 U/L (30-65); TOTAL BILIRUBIN 0.3 mg/dL (<0.1-1.0); TOTAL PROTEIN 7.6 g/dL (6.4-8.2); TROPONIN-I <0.06 ng/mL (<0.06)
[2019-09-12 16:07] VITALS: BP 95/63
[2019-09-12 20:20] VITALS: BP 94/61
--- NOTE | 2019-09-13 05:19 | NUR ---
ASSUMED PT CARE AT 190 WITH NO SIGN OF DISTRESS NOTED. PT IS ALERT AND ORIENTED. FAMILY AT BEDSIDE. NO SIGN OF DISTRESS NOTED IN PT. PT IS STABLE. ASSESSMENT COMPLETED AND DOCUMENTED. WOUND VAC IN PLACE. FALL PRECAUTION IN PLACE. SCHEDULED MEDS ADMINISTERED TO PT. PT TOLERATED PO INTAKE. PT IS STABLE THROUGHOUT THE NIGHT. DENIES ANY FURTHER NEEDS AT THIS TIME.
[2019-09-13 06:33] VITALS: BP 122/72
[2019-09-13 07:45] VITALS: BP 95/57
[2019-09-13 11:20] VITALS: BP 96/44
[2019-09-13 16:30] VITALS: BP 117/71
--- NOTE | 2019-09-13 16:32 | NUR ---
[facility] CALL[facility] TO REPORT THEY REC AUTH TODAY HOWEVER CANNOT ACCEPT UNTIL IN THE MORNING. UPDATED PATIENT, RN AND DTR AND PHYS.
--- NOTE | 2019-09-13 19:00 | NUR ---
Agus orders received today. assessment manager updated patient on tentative plans for discharge tomorrow. Pt has taken brief naps today. Medicated for sacral pain with partial pain relief obtained. Wound vac is intact. Pt worked with PT and OT. Report given to RN assuming care.
[2019-09-13 20:15] VITALS: BP 105/5
[2019-09-14 04:45] VITALS: BP 129/77
--- NOTE | 2019-09-14 05:15 | NUR ---
ASSUMED PT CARE AT 1900 WITH NO SIGN OF DISTRESS NOTED IN PT. PT IS ALERT BUT FORGETFUL. DAUGTHER AT BEDSIDE. DENIES ANY COMPLAINTS OF PAIN. ASSESSMENT COMPLETED AND CHARTED. FALL PRECAUTION IN PLACE. SCHEDULED MEDS ADMINISTERED TO PT, PT TOLERATED PO INTAKE. PT WANTS TO BE DISCHARGED. DENIES ANY FURTHER NEEDS AT THIS TIME.
[2019-09-14 07:47] VITALS: BP 98/64
[2019-09-14 11:56] VITALS: BP 123/72
--- NOTE | 2019-09-14 12:02 | NUR ---
PT DISCHARGING TODAY TO [facility] FAXED DC ORDERS/SUMMARY TO FACILITY SPOKE WITH MILLI IN ADM SHE RECEIVED DC ORDERS AND ARRANGED TRANSPORT BY [facility] FOR 1300 TODAY. NOTIFIED PT'S FAMILY (JESSICA) OF DC AND TIME OF TRANSPORT. UNIT NOTIFIED AND CHART COPY PER US. RN TO CALL REPORT TO [phone].
--- NOTE | 2019-09-14 12:30 | NUR ---
DISCHARGED TODAY TO [facility]. WOUND VAC REMOVED FROM SACRAL DECUBITUS AND WET TO DRY DRESSING APPLIED. PHOTO TAKEN. WOUND WITH GOOD GRANULATION TISSUE. ASSISTED FALL TODAY WITH OT. REPORT COMPLETED AND DOCTOR NOTIFIED, NO INJURIES. [facility] UPDATED ON HIGH FALL RISK. RIGHT IV REMOVED AND PATIENT TRANSPORTED VIA WHEELCHAIR IN STABLE CONDITION.
== END 2019-09-14 12:15 | DRG 291 ==
LOC: ER 09:50 → 2N 14:30 → EROBS 14:30 → 2N 14:31
PROVIDERS: Emergency Medicine; Internal Medicine; Internal Medicine Pulmonary Disease; Nurse Practitioner Adult Health; ADMIT Hospitalist
PROC: 0W9B3ZZ Drainage of Left Pleural Cavity, Percutaneous Approach (ICD-10-PCS; principal; 2019-09-07)
PROC: 0DP68UZ Removal of Feeding Device from Stomach, Via Natural or Artificial Opening Endoscopic (ICD-10-PCS; 2019-09-09)
DX: I50.23 Acute on chronic systolic (congestive) heart failure (principal); L89.154 Pressure ulcer of sacral region, stage 4; J96.21 Acute and chronic respiratory failure with hypoxia; E43 Unspecified severe protein-calorie malnutrition; J91.8 Pleural effusion in other conditions classified elsewhere; I48.21 Permanent atrial fibrillation; N17.9 Acute kidney failure, unspecified; F41.9 Anxiety disorder, unspecified; G62.9 Polyneuropathy, unspecified; E88.09 Other disorders of plasma-protein metabolism, not elsewhere classified; E83.42 Hypomagnesemia; I25.5 Ischemic cardiomyopathy; R00.0 Tachycardia, unspecified; F10.10 Alcohol abuse, uncomplicated; I25.10 Atherosclerotic heart disease of native coronary artery without angina pectoris; K21.9 Gastro-esophageal reflux disease without esophagitis; G72.89 Other specified myopathies; Z60.2 Problems related to living alone; D63.8 Anemia in other chronic diseases classified elsewhere; D47.3 Essential (hemorrhagic) thrombocythemia; E87.6 Hypokalemia; I95.9 Hypotension, unspecified; F32.9 Major depressive disorder, single episode, unspecified; Z86.718 Personal history of other venous thrombosis and embolism; Z88.6 Allergy status to analgesic agent; Z88.0 Allergy status to penicillin; Z82.49 Family history of ischemic heart disease and other diseases of the circulatory system; Z83.3 Family history of diabetes mellitus; Z68.31 Body mass index [BMI] 31.0-31.9, adult; Z95.810 Presence of automatic (implantable) cardiac defibrillator; Z79.01 Long term (current) use of anticoagulants; Z86.010 Personal history of colon polyps; Z90.81 Acquired absence of spleen
CPT/HCPCS: 10081; 10194; 70005

== ENCOUNTER 2019-09-29 08:50 | Emergency (ER) | payer OTHER ==
[~2019-09-29] VITALS: Ht 188 cm; Wt 86.2 kg
[~2019-09-29 08:50] MED LIST changes: +ACETAMINOPHEN650 M5 PO; +ACETYLCYST200 MG/1 M INH; +ASPIR 8181 MG PO; +B-1100 MG PO; +BUPROPION XL150 MG PO; +CALCIUM500 MG PO; +CATAPRES-TTS 20.2 MG TRANSDERM; +COREG6.25 MG PO; +ELIQUIS5 MG PO; +ENTRESTO 24 MG1 EACH PO; +GLUCAGEN1 M2 IM; +IPRAT-ALBUT 0.5-3 ML; +JEVITY 1.2 CAL237 ML PER TUBE; +LORAZEPAM 0.50.5 MG PO; +MELATONIN3 M1 PO; +MULTI VITAMIN1 EACH PO; +OMEPRAZOLE 20 M20 M1 PO; +OXYCODONE HCL E10 MG PO; +PERIDEX15 ML MM; +POTASSIUM20 PO; +TORSEMIDE20 MG PO
[2019-09-29] MEDS ORDERED: TORSEMIDE10 MG PO (10:31)
[2019-09-29] MEDS ORDERED: PERCOCET 5-3251 EACH PO (10:31)
[2019-09-29 11:19] VITALS: BP 110/59
== END 2019-09-29 11:20 | disposition home or self-care (01) ==
LOC: ER 08:50
DX: S02.2XXA Fracture of nasal bones, initial encounter for closed fracture (principal); S01.21XA Laceration without foreign body of nose, initial encounter; I10 Essential (primary) hypertension; I48.91 Unspecified atrial fibrillation; F41.9 Anxiety disorder, unspecified; Z95.5 Presence of coronary angioplasty implant and graft; Z86.718 Personal history of other venous thrombosis and embolism; Z88.0 Allergy status to penicillin; Z88.6 Allergy status to analgesic agent; W05.0XXA Fall from non-moving wheelchair, initial encounter; Y93.89 Activity, other specified; Y92.89 Other specified places as the place of occurrence of the external cause; Y99.8 Other external cause status

== ENCOUNTER → 2019-10-18 | Outpatient (CLI) | payer OTHER ==
[~2019-10-18] MED LIST changes: +PERCOCET 5-3251 EACH PO; +TORSEMIDE10 MG PO
== END ==
LOC: HYPER 09:30
DX: L89.154 Pressure ulcer of sacral region, stage 4 (principal); I50.9 Heart failure, unspecified; I42.9 Cardiomyopathy, unspecified; I48.91 Unspecified atrial fibrillation; M62.81 Muscle weakness (generalized); R26.2 Difficulty in walking, not elsewhere classified; G62.9 Polyneuropathy, unspecified; F32.9 Major depressive disorder, single episode, unspecified; Z86.718 Personal history of other venous thrombosis and embolism; Z79.02 Long term (current) use of antithrombotics/antiplatelets

== ENCOUNTER → 2019-11-15 | Outpatient (CLI) | payer OTHER | LOC: HYPER 14:28 | DX: L89.154 Pressure ulcer of sacral region, stage 4 (principal); M62.81 Muscle weakness (generalized); G62.9 Polyneuropathy, unspecified; I50.9 Heart failure, unspecified; I48.91 Unspecified atrial fibrillation; F32.9 Major depressive disorder, single episode, unspecified; Z86.718 Personal history of other venous thrombosis and embolism; Z79.01 Long term (current) use of anticoagulants; Z79.02 Long term (current) use of antithrombotics/antiplatelets ==

== ENCOUNTER → 2019-11-16 | Outpatient (CLI) | payer OTHER | LOC: SJCVC 16:48 | DX: I50.20 Unspecified systolic (congestive) heart failure (principal); I42.9 Cardiomyopathy, unspecified; I48.0 Paroxysmal atrial fibrillation; I95.1 Orthostatic hypotension; I25.10 Atherosclerotic heart disease of native coronary artery without angina pectoris; Z79.899 Other long term (current) drug therapy; Z88.6 Allergy status to analgesic agent; Z88.8 Allergy status to other drugs, medicaments and biological substances ==

== ENCOUNTER → 2019-12-01 | Outpatient (CLI) | payer OTHER | LOC: HYPER 09:26 | DX: L89.154 Pressure ulcer of sacral region, stage 4 (principal); M62.81 Muscle weakness (generalized); R26.2 Difficulty in walking, not elsewhere classified; G62.9 Polyneuropathy, unspecified; I50.9 Heart failure, unspecified; I42.9 Cardiomyopathy, unspecified; I48.91 Unspecified atrial fibrillation; E66.01 Morbid (severe) obesity due to excess calories; F32.9 Major depressive disorder, single episode, unspecified; Z79.02 Long term (current) use of antithrombotics/antiplatelets; Z86.718 Personal history of other venous thrombosis and embolism; Z68.25 Body mass index [BMI] 25.0-25.9, adult ==

== ENCOUNTER → 2019-12-07 | Outpatient (CLI) | payer OTHER | LOC: SJCVC 12:58 | DX: I48.91 Unspecified atrial fibrillation (principal); I21.09 ST elevation (STEMI) myocardial infarction involving other coronary artery of anterior wall; I45.10 Unspecified right bundle-branch block; R94.31 Abnormal electrocardiogram [ECG] [EKG]; I42.8 Other cardiomyopathies; I25.10 Atherosclerotic heart disease of native coronary artery without angina pectoris; E78.5 Hyperlipidemia, unspecified; D68.59 Other primary thrombophilia; Z86.79 Personal history of other diseases of the circulatory system; Z79.899 Other long term (current) drug therapy; Z82.49 Family history of ischemic heart disease and other diseases of the circulatory system ==

== ENCOUNTER → 2019-12-15 | Outpatient (CLI) | payer OTHER | LOC: HYPER 08:56 | DX: L89.154 Pressure ulcer of sacral region, stage 4 (principal); R26.2 Difficulty in walking, not elsewhere classified; M62.81 Muscle weakness (generalized); G62.9 Polyneuropathy, unspecified; I50.9 Heart failure, unspecified; I48.91 Unspecified atrial fibrillation; F32.9 Major depressive disorder, single episode, unspecified; Z86.718 Personal history of other venous thrombosis and embolism; Z79.02 Long term (current) use of antithrombotics/antiplatelets; Z79.01 Long term (current) use of anticoagulants ==

== ENCOUNTER → 2019-12-29 | Outpatient (CLI) | payer OTHER | LOC: SJCVC 09:55 | DX: I42.9 Cardiomyopathy, unspecified (principal); I50.20 Unspecified systolic (congestive) heart failure; I25.10 Atherosclerotic heart disease of native coronary artery without angina pectoris; I48.0 Paroxysmal atrial fibrillation; R05 Cough; Z79.899 Other long term (current) drug therapy ==

== ENCOUNTER → 2019-12-29 | Outpatient (CLI) | payer OTHER | LOC: HYPER 12:47 | DX: L89.154 Pressure ulcer of sacral region, stage 4 (principal); M62.81 Muscle weakness (generalized); R26.2 Difficulty in walking, not elsewhere classified; G62.9 Polyneuropathy, unspecified; I50.9 Heart failure, unspecified; I48.91 Unspecified atrial fibrillation; F32.9 Major depressive disorder, single episode, unspecified; Z86.718 Personal history of other venous thrombosis and embolism; Z79.02 Long term (current) use of antithrombotics/antiplatelets; Z79.01 Long term (current) use of anticoagulants ==

== ENCOUNTER → 2020-02-01 | Outpatient (CLI) | payer OTHER | LOC: HYPER 08:58 | DX: L89.154 Pressure ulcer of sacral region, stage 4 (principal); E66.01 Morbid (severe) obesity due to excess calories; G62.9 Polyneuropathy, unspecified; I50.9 Heart failure, unspecified; I42.9 Cardiomyopathy, unspecified; I48.91 Unspecified atrial fibrillation; F32.9 Major depressive disorder, single episode, unspecified; Z86.718 Personal history of other venous thrombosis and embolism; Z79.02 Long term (current) use of antithrombotics/antiplatelets; Z68.25 Body mass index [BMI] 25.0-25.9, adult ==

== ENCOUNTER → 2020-02-22 | Outpatient (CLI) | payer OTHER | LOC: HYPER 10:19 | DX: L89.154 Pressure ulcer of sacral region, stage 4 (principal); G62.9 Polyneuropathy, unspecified; I50.9 Heart failure, unspecified; I42.9 Cardiomyopathy, unspecified; I48.91 Unspecified atrial fibrillation; R26.2 Difficulty in walking, not elsewhere classified; M62.81 Muscle weakness (generalized); F32.9 Major depressive disorder, single episode, unspecified; Z79.02 Long term (current) use of antithrombotics/antiplatelets; Z86.718 Personal history of other venous thrombosis and embolism; Z95.810 Presence of automatic (implantable) cardiac defibrillator ==

== ENCOUNTER → 2020-04-06 | Outpatient (CLI) | payer OTHER | LOC: CAT 04-03 13:53 | DX: J43.9 Emphysema, unspecified (principal); R91.8 Other nonspecific abnormal finding of lung field; M48.04 Spinal stenosis, thoracic region ==

== ENCOUNTER → 2020-05-03 | Outpatient (CLI) | payer OTHER | LOC: MRI 04-30 10:16 | PROVIDERS: ATTEND Family Medicine | DX: M51.27 Other intervertebral disc displacement, lumbosacral region (principal); M47.26 Other spondylosis with radiculopathy, lumbar region; M48.07 Spinal stenosis, lumbosacral region ==

== ENCOUNTER → 2020-05-08 | Outpatient (CLI) | payer OTHER | LOC: SJCVC 12:54 | PROVIDERS: ATTEND Internal Medicine | DX: Z01.810 Encounter for preprocedural cardiovascular examination (principal); I48.91 Unspecified atrial fibrillation; I45.2 Bifascicular block; I11.0 Hypertensive heart disease with heart failure; I50.20 Unspecified systolic (congestive) heart failure; I42.9 Cardiomyopathy, unspecified; E78.5 Hyperlipidemia, unspecified; M79.604 Pain in right leg; M79.605 Pain in left leg; I25.10 Atherosclerotic heart disease of native coronary artery without angina pectoris; Z79.899 Other long term (current) drug therapy; Z82.49 Family history of ischemic heart disease and other diseases of the circulatory system ==

== ENCOUNTER → 2020-06-19 | Outpatient (CLI) | payer OTHER ==
[~2020-06-19] VITALS: Ht 238.8 cm; Wt 99.8 kg
[~2020-06-19] MED LIST changes: +LANOXIN 0.25M0.25 M1 PO; +LASIX 20 MG TAB20 MG PO; +LISINOPRIL20 MG PO; +XARELTO10 MG PO
[2020-06-19 08:26] VITALS: BP 117/74
--- NOTE | 2020-06-19 08:43 | NUR ---
Pain Clinic Assessment: 1. History of Osteoarthritis: Not Applicable History of Rheumatoid Arthritis: Not Applicable 2. Height: 6 ft. 22 in. 238.8 cm. Weight: 220.0 lb. oz. 99.792 kg. Patient's BMI: 17.5 3. Vital Signs: BP: 117/74 Pulse: 78 Resp: 16 Temp: 02 Sat: 97 ECG Mon: 4. Pain Intensity: 8 5. Fall Risk: Dizziness: N Needs help standing or walking: N Fallen in the last 3 months: N Fall risk comments: 6. Patient on Blood Thinner: XARELTO 7. History of Hypertension: Y 8. Opioid Therapy greater than 6 weeks: N Opiate Contract Signed: 9. Risk Assessment Tool Provided: LOW 10. Functional Assessment Tool: 11. Recreational Drug Use: Never Drug Type: Tobacco Use: Never Smoker Tobacco Type: Amount or Packs/day: How Many Years: Alcohol Use: Yes Frequency: Weekly Quant: 2-3 BEERS
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
== END ==
LOC: PAIN 06:49
PROVIDERS: ATTEND Anesthesiology Pain Medicine
DX: M48.061 Spinal stenosis, lumbar region without neurogenic claudication (principal); M51.16 Intervertebral disc disorders with radiculopathy, lumbar region; I11.0 Hypertensive heart disease with heart failure; I50.9 Heart failure, unspecified; I48.91 Unspecified atrial fibrillation; Z98.890 Other specified postprocedural states; Z88.8 Allergy status to other drugs, medicaments and biological substances; Z68.41 Body mass index [BMI] 40.0-44.9, adult; Z79.891 Long term (current) use of opiate analgesic; Z79.899 Other long term (current) drug therapy; Z87.891 Personal history of nicotine dependence

== ENCOUNTER → 2020-06-26 | Outpatient (CLI) | payer OTHER ==
[~2020-06-26] VITALS: Ht 188 cm; Wt 125.1 kg
--- NOTE | ~2020-06-26 | HPC ---
[facility] [place] [address] PAIN MANAGEMENT CONSULTATION Name: MUKUL VENTURA [id number] Admission: 06/26/20 Attend Phys: Valente Tristan DO Discharge: Date of : 51 Report #: [id number] THIS REPORT FOR: cc: Renu Salas MD,Valente Giles MD, DO ~ CC: Renu Tristan DATE OF SERVICE: 06/26/2020 REFERRING PHYSICIAN: Renu Salas MD CHIEF COMPLAINT: Low back pain, left buttock pain. HISTORY OF PRESENT ILLNESS: As you know, the patient is a 65-year-old male who was referred to our service for questionable lumbar radiculopathy. We saw the patient in consultation on 06/19/2020 diagnosed with displacement of lumbar intervertebral disk with resultant fgwszvom-or-oeerrk central canal stenosis, the likely source of the patient's pain. He was established today's appointment to undergo lumbar epidural injection. He had to come off of his Xarelto in preparation for the procedure. We received authorization for the patient to come off this medication. The patient has been off the Xarelto for the appropriate 3 days to undergo a lumbar epidural injection under fluoroscopic guidance. Today, the patient is reporting pain at no greater than 3/10. He has had no new injury, no new trauma since our last visit. The only change in medications are the discontinuation of Xarelto. ALLERGIES: PENICILLIN, OXYCODONE, FENTANYL, HYDROMORPHONE AND MORPHINE. CURRENT MEDICATIONS: Furosemide 20 mg once a day, digoxin 0.125 mg once a day, lisinopril 20 mg per day, carvedilol 25 mg once a day, multivitamin 1 tab per day, ipratropium bromide 1 puff every 4 hours, Xarelto 10 mg once a day. SOCIAL HISTORY: The patient is a reformed smoker, quit in 1999. Denies IV or illicit drug use. Admits to 1 alcohol beverage per day. He is . He is unaccompanied at today's visit. IMAGING: There is no new imaging available. PQRS: The patient has known arthritic changes of the lumbar spine. No rheumatoid arthritis. He is placing current pain score around 3/10. He is not a fall risk nor has he had a fall in last 3 months. He is treated for hypertension and is on blood thinners, but has discontinued the medication for the past 3 days. He is not on opioids, has a low opioid addiction potential [address] [address] PAIN MANAGEMENT CONSULTATION Name: MUKUL VENTURA Leti Room #: REG [facility] SergioSean#: [id number] Admission: 06/26/20 Attend Phys: Valente Tristan DO Discharge: Date of : 51 Report #: [id number] based on our assessment tool. Pain impact today rated at 37/70, moderate interference of daily activities secondary to pain. PHYSICAL EXAMINATION: VITAL SIGNS: Blood pressure 153/73, pulse 87, respiratory rate 22 and unlabored. The patient is 96% on room air, height 6 feet 2 inches tall, weight 275.8 pounds, and BMI calculated 35.4. GENERAL: Well-developed, well-nourished, well-hydrated 65-year-old male appearing stated age, pain is rated anywhere from 0-3/10 depending on activity. HEENT: Normocephalic, atraumatic. Pupils equal, round and reactive. Speech fluent. EXTREMITIES: Show no clubbing, no cyanosis. No noted edema. MUSCULOSKELETAL: Lower extremity strength symmetrical, 5/5, intact to light touch from L1 through S2 dermatomes. Seated straight leg raising negative. Supine straight leg raising negative. Allen's test is negative. Modified Gaenslen's positive for axial low back pain. ASSESSMENT: 1. Lumbar radiculopathy. 2. Displacement of lumbar intervertebral disk with radiculopathy. 3. 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 4. Chronic L5-S1 radiculopathies. 5. Left buttock pain. PLAN: 1. The patient returns today in followup visit having discontinued his Xarelto in preparation for a lumbar epidural injection to address suspected lumbar radiculopathy. The patient has been advised of the risks and the benefits of this procedure. These risks include, but are not necessarily limited to; bleeding, bruising, infection, worsening of pain, no relief of pain, temporary or permanent muscle weakness, temporary or permanent nerve damage, possible paralysis and . The patient states understood and wished to proceed. 2. No medication changes made at today's visit. The patient will continue current medical therapy as prior prescribed. 3. We will see the patient back in followup visit on an as needed basis for possible next in the series of epidural injections. We did establish the patient a tentative appointment for 1 month if he wishes to undergo next in the series. 4. We are hopeful the patient will see good and prolonged benefit with today's epidural injection. We will see him back in followup visit in about 31 days. If he requires next in the series. PROCEDURE NOTE DESCRIPTION OF PROCEDURE: L5-S1 left paramedian epidural steroid injection under fluoroscopic guidance. [address] [address] PAIN MANAGEMENT CONSULTATION Name: MUKUL VENTURA Room #: REG [facility]#: [id number] Admission: 06/26/20 Attend Phys: Valente Tristan DO Discharge: Date of : 51 Report #: [id number] This is the first procedure of the first series that the patient is undergoing. After obtaining written consent, the patient was taken back to the fluoroscopy suite, placed in a prone position with pillow under the abdomen to decrease lumbar lordosis. The skin overlying the lumbosacral area was then prepped and draped in aseptic fashion. The L5-S1 vertebral interspace was then identified by AP fluoroscopy. The skin and subcutaneous tissue overlying the target site of injection was anesthetized with 3 mL 1% lidocaine. A 20-gauge 3-1/2 inch Tuohy needle was then advanced under fluoroscopic guidance towards the epidural space using a left paramedian approach. The epidural space was identified using loss of resistance to air technique. After negative aspiration for heme or cerebrospinal fluid, a total of 1 mL of Omnipaque was injected. A lumbar epidurogram was confirmed using both AP and lateral fluoroscopy. After negative aspiration for heme or cerebrospinal fluid, 5 mL of solution containing 2 mL 40 mg per mL, 80 mg total triamcinolone along with 3 mL of lidocaine 1% was injected in increments. Contrast spread was noted posterior epidural space. The needle was then retracted approximately half way and needle tract flushed with 1 mL of 1% lidocaine. Needle was then removed. There were no apparent sensory or motor deficits in the lower extremity following the procedure. A sterile bandage was placed over the injection site. The heart rate, pulse, oximetry and blood pressure were continuously monitored after the procedure. There were no apparent complications. The patient tolerated the procedure well and was carefully escorted to the recovery room in stable condition. There were no apparent complications. After meeting discharge criteria, the patient was then discharged home. By: [id number] Valente Tristan DO /nt
[2020-06-26 14:44] VITALS: BP 153/73
--- NOTE | 2020-06-26 14:55 | NUR ---
Pain Clinic Assessment: 1. History of Osteoarthritis: Not Applicable History of Rheumatoid Arthritis: Not Applicable 2. Height: 6 ft. 2 in. 188.0 cm. Weight: 275.8 lb. oz. 125.102 kg. Patient's BMI: 35.4 3. Vital Signs: BP: 153/73 Pulse: 87 Resp: 22 Temp: 02 Sat: 96 ECG Mon: 4. Pain Intensity: 0 5. Fall Risk: Dizziness: N Needs help standing or walking: N Fallen in the last 3 months: N Fall risk comments: 6. Patient on Blood Thinner: XARELTO 7. History of Hypertension: Y 8. Opioid Therapy greater than 6 weeks: N Opiate Contract Signed: 9. Risk Assessment Tool Provided: LOW 10. Functional Assessment Tool: 11. Recreational Drug Use: Never Drug Type: Tobacco Use: Never Smoker Tobacco Type: Amount or Packs/day: How Many Years: Alcohol Use: Yes Frequency: Weekly Quant: 1-2
== END ==
LOC: PAIN 06:58
PROVIDERS: ATTEND Anesthesiology Pain Medicine
DX: M54.5 Low back pain (principal); M51.16 Intervertebral disc disorders with radiculopathy, lumbar region; M48.061 Spinal stenosis, lumbar region without neurogenic claudication; M79.18 Myalgia, other site; N18.9 Chronic kidney disease, unspecified; I50.9 Heart failure, unspecified; I48.91 Unspecified atrial fibrillation; Z88.0 Allergy status to penicillin; Z88.6 Allergy status to analgesic agent; Z88.8 Allergy status to other drugs, medicaments and biological substances; Z79.899 Other long term (current) drug therapy; Z87.891 Personal history of nicotine dependence

== ENCOUNTER → 2020-07-31 | Outpatient (CLI) | payer OTHER ==
[~2020-07-31] VITALS: Ht 188 cm; Wt 124.8 kg
[~2020-07-31] MED LIST changes: +NEURONTIN 300M300 M2 PO
--- NOTE | ~2020-07-31 | HPC ---
[address] [place] [address] PAIN MANAGEMENT CONSULTATION Name: MUKUL VENTURA [facility] #: [facility] [id number] Admission: 07/31/20 Attend Phys: Valente Tristan DO Discharge: Date of : 51 Report #: [id number] THIS REPORT FOR: cc: Renu Salas MD,Valente Giles MD, DO ~ CC: RENU Tristan DATE OF SERVICE: 07/31/2020 REFERRING PHYSICIAN: Renu Salas MD CHIEF COMPLAINT: Low back pain, left buttock and posterolateral thigh pain. HISTORY OF PRESENT ILLNESS: As you know, the patient is a 65-year-old male referred to our service for lumbar radiculopathy. We saw the patient in consultation on 06/19/2020, diagnosed with displacement of lumbar intervertebral disk with resultant wfprrrrn-fn-kdeuba central canal stenosis. He underwent a lumbar epidural injection under fluoroscopic guidance at the return visit after being off his Xarelto in preparation for the procedure. He underwent the epidural injection and reports today near 100% improvement in overall pain lasting until just recently. He is now placing pain score at 3/10. He returns today in followup visit to discuss treatment options. He is pleased with response to the initial injection, stating he continues to receive benefit from it. He returns to discuss options for treatment as he is concerned his symptoms will return. ALLERGIES: PENICILLIN, OXYCODONE, FENTANYL, HYDROMORPHONE, AND MORPHINE. CURRENT MEDICATIONS: Furosemide 20 mg once a day, digoxin 0.125 mg once a day, lisinopril 20 mg per day, carvedilol 25 mg once a day, multivitamin 1 tab per day, ipratropium bromide 1 puff every 4 hours, Xarelto 10 mg once a day. SOCIAL HISTORY: The patient reports he is a reformed smoker, he quit in 1999. Denies IV or illicit drug use. Admits to 1 alcohol beverage per day. He is . He is unaccompanied at today's visit. IMAGING: No new imaging is available. We did review once again with the patient the findings from his 05/03/2020 examination, which showed central canal reduced to 4 mm, which is a severe central canal stenosis noted at the L3-L4 level. PQRS: The patient has known arthritic changes of the lumbar spine. No rheumatoid arthritis. He is placing his current pain intensity around 3/10. He [address] [address] PAIN MANAGEMENT CONSULTATION Name: MUKUL VENTURA Leti Room #: REG [facility]#: [id number] Admission: 07/31/20 Attend Phys: Valente Tristan DO Discharge: Date of : 51 Report #: [id number] is not a fall risk nor has he had a fall in last 3 months. He is treated for hypertension and is on blood thinners. He continues on his Xarelto. He is not on opioids and has a low opioid addiction potential based on our assessment tool. Pain impact today is rated at 37/70, similar to his previous evaluation. PHYSICAL EXAMINATION: VITAL SIGNS: Blood pressure 118/78, pulse 70, respiratory rate 16 and unlabored. The patient is 98% on room air, height 6 feet 2 inches tall, weight 275.2 pounds, BMI calculated 35.3. GENERAL: Well-developed, well-nourished, well-hydrated, 65-year-old male, who appears his stated age. He is placing current pain score around 3/10. HEENT: Normocephalic, atraumatic. Pupils equal, round and reactive. Speech is fluent for patient. EXTREMITIES: Show no clubbing, no cyanosis. No appreciable edema. MUSCULOSKELETAL: Lower extremity strength appears symmetrical again today 5/5. Seated straight leg raising negative. Supine straight leg raising negative. Allen's test is negative. Modified Gaenslen's positive for axial low back pain. Ankle clonus negative. Babinski is negative. Stance is slightly forward flexed lumbar spine with mild loss of lordotic curvature. ASSESSMENT: 1. Lumbar radiculopathy. 2. Kkdqybyc-fc-dovofb central canal stenosis of lumbar spine. 3. Displacement of lumbar intervertebral disk with radiculopathy. 4. Chronic L5-S1 radiculopathy. 5. Chronic intractable pain. PLAN: 1. The patient returns today in followup visit having noted excellent benefit with the epidural injection provided at our last visit. He indicates today pain no greater than 3/10. He is very pleased with response to the initial injection, but wishes to discuss treatment options to address his residual symptoms. At our initial visit, we discussed the 6 different ways to treat lumbar radiculopathy. He wishes to review those again today. We discussed physical therapy, stretching exercises, core strengthening, and a concerted effort of weight loss. We discussed medication management utilizing neuropathic pain medications. We discussed epidural injections, spinal cord stimulators, and ultimately surgical decompression. After reviewing the risks and benefits of all proposed treatment options, he chose to begin with medication therapy and requests a referral to Neurosurgery to discuss his case from a surgical standpoint. 2. The patient was provided a referral to see Dr. Aravind Villareal at [facility]. The patient will make this appointment as quickly as possible. He will take his recent imaging with him to that appointment for the discussion of treatment options from a surgical standpoint. He will keep us apprised of [facility] [address] [place] [address] PAIN MANAGEMENT CONSULTATION Name: CHANOLUPISSURIMUKUL Room #: REG [facility].#: [id number] Admission: 07/31/20 Attend Phys: Valente Tristan DO Discharge: Date of : 51 Report #: [id number] that discussion and what may be suggested from a treatment standpoint. Referral was provided to the patient in written form today. We have also sent this to Dr. Villareal's office. 3. We recommend the patient start on gabapentin to address the residual pain, he is experiencing. He will start at 300 mg p.o. at bedtime, continue for 3 nights, and increase to 600 mg p.o. at bedtime for 3 nights. No improvement in symptoms, no side effects, then increase to 300 mg in the morning and 600 mg at night. Continue for 3 more days. If no improvement in symptoms, 600 mg in the morning, 600 mg at night for 3 nights. If no improvement in symptoms, no side effects of sleepiness, disorientation, confusion, mental slowing, then begin escalating the dose of the noon timeframe to escalate to 600 mg b.i.d. The patient was advised anytime during the titration, if he notes improvement in symptoms, stabilize at that dose. He was given a prescription of #180, 300 mg of gabapentin tablets sent to his local pharmacy. The patient was also provided a titration in written form on how to take this medication. 4. We will see the patient back in followup visit on an as needed basis for possible next in the series of epidural injections. We are pleased to see the patient did well with the initial injection and we will be available to see him back if he wishes to undergo this procedure again. The patient was advised to be off the Xarelto for 3 days prior to that injection. By: [id number] Valente Tristan DO /nt
[2020-07-31 11:00] VITALS: BP 118/78
--- NOTE | 2020-07-31 11:22 | NUR ---
Pain Clinic Assessment: 1. History of Osteoarthritis: Not Applicable History of Rheumatoid Arthritis: Not Applicable 2. Height: 6 ft. 2 in. 188.0 cm. Weight: 275.2 lb. oz. 124.830 kg. Patient's BMI: 35.3 3. Vital Signs: BP: 118/78 Pulse: 70 Resp: 16 Temp: 02 Sat: 98 ECG Mon: 4. Pain Intensity: 3 5. Fall Risk: Dizziness: N Needs help standing or walking: N Fallen in the last 3 months: N Fall risk comments: 6. Patient on Blood Thinner: XARELTO 7. History of Hypertension: Y 8. Opioid Therapy greater than 6 weeks: N Opiate Contract Signed: 9. Risk Assessment Tool Provided: LOW 10. Functional Assessment Tool: 11. Recreational Drug Use: Never Drug Type: Tobacco Use: Never Smoker Tobacco Type: Amount or Packs/day: How Many Years: Alcohol Use: Yes Frequency: Quant:
== END ==
LOC: PAIN 06:59
PROVIDERS: ATTEND Anesthesiology Pain Medicine
DX: M51.16 Intervertebral disc disorders with radiculopathy, lumbar region (principal); M79.652 Pain in left thigh; M48.061 Spinal stenosis, lumbar region without neurogenic claudication; M54.17 Radiculopathy, lumbosacral region; G89.29 Other chronic pain; Z88.8 Allergy status to other drugs, medicaments and biological substances; Z79.899 Other long term (current) drug therapy

== ENCOUNTER → 2020-08-21 | Outpatient (CLI) | payer OTHER ==
[~2020-08-21] VITALS: Ht 188 cm; Wt 124.0 kg
--- NOTE | ~2020-08-21 | HPC ---
[address] [address] PAIN MANAGEMENT CONSULTATION Name: MUKUL VENTURA Room #: REG [facility].#: [id number] Admission: 08/21/20 Attend Phys: Valente Tristan DO Discharge: Date of : 51 Report #: [id number] CC: Renu Tristan DATE OF SERVICE: 08/21/2020 REFERRING PHYSICIAN: Renu Salas MD CHIEF COMPLAINT: Low back pain, left buttock and posterolateral thigh pain. HISTORY OF PRESENT ILLNESS: As you know, the patient is a 65-year-old male referred to our service for lumbar radiculopathy to undergo epidural injections in hopes of improving pain. We reviewed the patient's imaging study and it showed to sbhlsurj-cc-lcbyqc central canal stenosis. He underwent a lumbar epidural injection under fluoroscopic guidance. After coming off of his Xarelto for 3 days in preparation for the procedure. He actually received excellent benefit with that injection. Unfortunately, his symptoms have begun to return. 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 Once this has been corrected then he is to move on with neurosurgical treatment. This could be a protracted timeframe. He returns today in followup visit requesting to address recurrent lumbar radicular symptoms. He is placing current pain score around 8/10. ALLERGIES: PENICILLIN, OXYCODONE, FENTANYL, HYDROMORPHONE AND MORPHINE. CURRENT MEDICATIONS: Furosemide 20 mg once a day, digoxin 0.125 mg once a day, lisinopril 20 mg per day, carvedilol 25 mg once a day, multivitamin 1 tab per day, ipratropium bromide 1 puff q. 4 hours, Xarelto 10 mg once a day. SOCIAL HISTORY: The patient is a reformed smoker, quit in 1999. Denies IV or illicit drug use. Admits to at least 1 alcohol beverage per day. He is . He is unaccompanied at today's visit. IMAGING: No new imaging available. PQRS: The patient has known arthritic changes of the lumbar spine, bilateral hips, no rheumatoid arthritis. Placing current pain score 8/10. He is not a fall risk nor has he had a fall in last 3 months. He is on blood thinners in the form of Xarelto. He is treated for hypertension. He is not on any chronic opioids, has a low opiate addiction potential based on our assessment tool. Pain impact at 37/70, moderate interference of daily activities secondary to pain. PHYSICAL EXAMINATION: VITAL SIGNS: Blood pressure 108/60, pulse 73, respiratory rate 20 and unlabored. The patient is 97% on room air. Height 6 feet 2 inches tall, weight 273.4 pounds, BMI calculated 35.1. GENERAL: Well-developed, well-nourished, well-hydrated exogenously obese 65-year-old male appearing stated age. He is in no acute distress, awake, alert and oriented x 3. Current pain score is 8/10. HEENT: Normocephalic, atraumatic. Pupils equal, round and reactive to light. Speech is fluent for patient. EXTREMITIES: Show no clubbing, no edema. There does appear to be slight cyanotic color to his integument. MUSCULOSKELETAL: Lower extremity strength is symmetrical. Seated straight leg raising negative. Supine straight leg raising negative. Allen test negative. Modified Gaenslen's positive for axial low back pain. Ankle clonus negative. Babinski is negative. ASSESSMENT: 1. Lumbar radiculopathy. 2. Severe central canal stenosis of lumbar spine. 3. Displacement of lumbar intervertebral disk with radiculopathy. 4. Chronic intractable pain. PLAN: 1. The patient returns today in followup visit to begin the process of scheduling the next in the series of lumbar epidural injections. The patient has not discontinued his Xarelto, but does wish to undergo an injection to address his 8/10 pain. I have established an appointment for the patient on Thursday afternoon where we will him here at the clinic and have him undergo an epidural injection. We are not available on Thursday, but I have made arrangements for the patient to undergo the epidural injection, so that we can alleviate some of his 8/10 pain and keep him off his Xarelto for the lowest time necessary to undergo this procedure. The patient is appreciative. We will schedule the patient at approximately 12:30 on Thursday of this week to undergo a lumbar epidural injection assuming he come off his Xarelto. 2. The patient did request my nursing staff, the possibility of having treatment with pain medications. I advised the patient given his tracheal stenosis and difficulty with respirations that opioid medications would not be recommended, especially for p.r.n. use. This patient will be monitored and I am concerned of airway restriction issues and oxygenation. He appears somewhat cyanotic, which would indicate that he has a higher level of CO2, which puts him at an even higher risk of respiratory depression secondary to opioid medications. I do not feel that at this point, neuropathic medications will provide as much in the way of improvement, though we can consider suggestions of treatment including nortriptyline, amitriptyline, Cymbalta or gabapentin. These might be beneficial. Anti-inflammatories would be helpful, but given his use of Xarelto this medication is precluded. I do feel that treatment with this patient needs to be cautious given his tracheal stenosis and elevated CO2 levels based on his current skin coloration and his work of breathing. 3. The patient is planning to undergo surgery. I do feel this is probably the most appropriate treatment course for him, though it is delayed due to his tracheal stenosis. He has the tracheal stenosis to be addressed first. He will be doing this at [facility] in [place]. Once he has completed this, then they will schedule his neurosurgery evaluation and surgery. 4. We plan to see the patient back in followup visit on Thursday of this week to undergo lumbar lordosis. By: [id number] Valente Tristan DO /nt
[2020-08-21 13:34] VITALS: BP 108/60
--- NOTE | 2020-08-21 13:55 | NUR ---
Pain Clinic Assessment: 1. History of Osteoarthritis: Not Applicable History of Rheumatoid Arthritis: Not Applicable 2. Height: 6 ft. 2 in. 188.0 cm. Weight: 273.4 lb. oz. 124.014 kg. Patient's BMI: 35.1 3. Vital Signs: BP: 108/60 Pulse: 73 Resp: 20 Temp: 02 Sat: 97 ECG Mon: 4. Pain Intensity: 8 5. Fall Risk: Dizziness: N Needs help standing or walking: N Fallen in the last 3 months: N Fall risk comments: 6. Patient on Blood Thinner: XARELTO 7. History of Hypertension: Y 8. Opioid Therapy greater than 6 weeks: N Opiate Contract Signed: 9. Risk Assessment Tool Provided: LOW-0 10. Functional Assessment Tool: 11. Recreational Drug Use: Never Drug Type: Tobacco Use: Never Smoker Tobacco Type: Amount or Packs/day: How Many Years: Alcohol Use: Yes Frequency: Quant:
== END ==
LOC: PAIN 06:52
PROVIDERS: ATTEND Anesthesiology Pain Medicine
DX: M51.36 Other intervertebral disc degeneration, lumbar region (principal); M48.061 Spinal stenosis, lumbar region without neurogenic claudication; G89.29 Other chronic pain; Z88.8 Allergy status to other drugs, medicaments and biological substances; Z79.899 Other long term (current) drug therapy

== ENCOUNTER → 2020-08-24 | Outpatient (CLI) | payer OTHER ==
[~2020-08-24] VITALS: Ht 188 cm; Wt 123.8 kg
[2020-08-24 12:45] VITALS: BP 136/80
--- NOTE | 2020-08-24 12:51 | NUR ---
Pain Clinic Assessment: 1. History of Osteoarthritis: Not Applicable History of Rheumatoid Arthritis: Not Applicable 2. Height: 6 ft. 2 in. 188.0 cm. Weight: 273.0 lb. oz. 123.832 kg. Patient's BMI: 35.0 3. Vital Signs: BP: 136/80 Pulse: 71 Resp: 20 Temp: 02 Sat: 97 ECG Mon: 4. Pain Intensity: 8 5. Fall Risk: Dizziness: N Needs help standing or walking: N Fallen in the last 3 months: N Fall risk comments: 6. Patient on Blood Thinner: XARELTO 7. History of Hypertension: Y 8. Opioid Therapy greater than 6 weeks: N Opiate Contract Signed: 9. Risk Assessment Tool Provided: LOW-0 10. Functional Assessment Tool: 11. Recreational Drug Use: Never Drug Type: Tobacco Use: Never Smoker Tobacco Type: Amount or Packs/day: How Many Years: Alcohol Use: Yes Frequency: Quant:
--- NOTE | 2020-08-28 07:39 | HPC ---
[facility] [place] [address] PAIN MANAGEMENT CONSULTATION Name: MUKUL VENTURA Leti [id number] Admission: 08/24/20 Attend Phys: Valente Tristan DO Discharge: Date of : 51 Report #: [id number] CC: Renu Tristan DATE OF SERVICE: 08/24/2020 REFERRING PHYSICIAN: Renu Salas MD CHIEF COMPLAINT: Low back pain, left lower extremity pain with paresthesias, and intermittent right lower extremity pain with paresthesias. HISTORY OF PRESENT ILLNESS: As you know, the patient is a 65-year-old male who has longstanding history of lumbar radiculopathy that will ultimately require surgical intervention. 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 The patient returns today in followup visit having discontinued his Xarelto after our discussion of treatment options on 08/21/2020 to undergo next in the series of epidural injections. He has been off the Xarelto for the appropriate amount of time to undergo the epidural injection. He is placing pain today at around 8/10. He has denied any new injury or trauma that may have led to symptom continuation. He has recently been seen by the tracheal specialist in regards to his upcoming surgery, which is planned for 09/17/2020 and then will be followed by his neurosurgery consultation and scheduling to address his lumbar radiculopathy. ALLERGIES: PENICILLIN, OXYCODONE, FENTANYL, HYDROMORPHONE AND MORPHINE. CURRENT MEDICATIONS: Furosemide 20 mg per day, digoxin 0.125 mg once a day, lisinopril 20 mg per day, carvedilol 25 mg once a day, multivitamin 1 tab per day, ipratropium bromide q. 4 hours, Xarelto 10 mg once a day. SOCIAL HISTORY: The patient is a reformed smoker, quit in 1999. Denies IV or illicit drug use. Admits to 1 alcohol beverage per day. He is . He is unaccompanied at today's visit. IMAGING: No new imaging available. PQRS: The patient has known arthritic changes of the lumbar spine, bilateral hips, no rheumatoid arthritis. He is placing current pain score at around 8/10. He is not a fall risk, has not had a fall in last 3 months. He is on blood thinners in the form of Xarelto, but discontinued the medication in preparation for today's procedure. He is treated for hypertension. He is not on any known chronic opioids, has a low opiate addiction potential based on our assessment tool. Pain impact remains at about 40/70, moderate interference of daily activities secondary to pain. PHYSICAL EXAMINATION: GENERAL: Well-developed, well-nourished, well-hydrated exogenously obese 65-year-old male. He is in no acute distress, awake, alert and oriented x 3, pain is rated again at 8/10. HEENT: Normocephalic, atraumatic. Pupils equal, round and reactive. NEUROLOGIC: Speech is fluent for patient. There is noted audible wheezing secondary to tracheal stenosis. EXTREMITIES: Show no clubbing, no edema. There is cyanotic color to his integument systemically. MUSCULOSKELETAL: Lower extremity strength equal and symmetrical, but deconditioned. Seated straight leg raising remains negative. Supine straight leg raising now is positive on the left at about 70-degree angle. Allen's test negative. Modified Gaenslen's positive for axial low back pain. Gait is antalgic favoring left lower extremity. ASSESSMENT: 1. Symptomatic lumbar radiculopathy. 2. Severe central canal stenosis of lumbar spine. 3. Displacement of lumbar intervertebral disk with radiculopathy. 4. Lumbar degeneration. 5. Chronic intractable pain. PLAN: 1. The patient has returned today in followup visit having discontinued his Xarelto in preparation for a lumbar epidural injection. He has been off the medication for the appropriate amount of time based on ALEX guidelines. He has been advised of the risks and the benefits of a lumbar epidural injection. These risks include but are not necessarily limited to bleeding, bruising, infection, worsening pain, no relief of pain, also risk of temporary or permanent muscle weakness, temporary or permanent nerve damage, possible paralysis and . The patient states understood and wished to proceed. 2. No medication changes made at today's visit. We recommend the patient continue current medical therapy as prior prescribed. 3. We will see the patient back in followup visit on an as-needed basis for possible next in the series of lumbar epidural injections. We are hopeful the patient will see good and prolonged benefit with today's procedure. PROCEDURE NOTE DESCRIPTION OF PROCEDURE: L4-5 left parasagittal epidural steroid injection under fluoroscopic guidance. This is the second procedure of the first series that the patient is undergoing. After obtaining written consent, the patient was taken back to the fluoroscopy suite, placed in a prone position with pillow under the abdomen to decrease lumbar lordosis. The skin overlying the lumbosacral area was then prepped and draped in aseptic fashion. The L4-5 vertebral interspace was then identified by AP fluoroscopy. The skin and subcutaneous tissue overlying the target site of injection was anesthetized with 3 mL 1% lidocaine. A 20-gauge 3-1/2 inch Tuohy needle was then advanced under fluoroscopic guidance towards the epidural space using a parasagittal approach. The epidural space was identified using loss of resistance to air technique. After negative aspiration for heme or cerebrospinal fluid, a total of 1 mL of Omnipaque was injected. A lumbar epidurogram was confirmed using both AP and lateral fluoroscopy. After negative aspiration for heme or cerebrospinal fluid, 5 mL of solution containing 2 mL 40 mg per mL, 80 mg total triamcinolone along with 3 mL of lidocaine 1% was injected in increments. Contrast spread was noted posterior epidural space. The needle was then retracted approximately half way and needle tract flushed with 1 mL of 1% lidocaine. Needle was then removed. There were no apparent sensory or motor deficits in the lower extremity following the procedure. A sterile bandage was placed over the injection site. The heart rate, pulse, oximetry and blood pressure were continuously monitored after the procedure. There were no complications. The patient tolerated the procedure well and was carefully escorted to the recovery room in stable condition. There were no apparent complications. After meeting discharge criteria, the patient was then discharged home. <ELECTRONICALLY SIGNED> By: Valente Tristan DO 08/28/20 [id number] Valente Tristan DO /nt
== END | disposition home or self-care (01) ==
LOC: PAIN 06:48
PROVIDERS: ATTEND Anesthesiology Pain Medicine
DX: M51.16 Intervertebral disc disorders with radiculopathy, lumbar region (principal); M48.061 Spinal stenosis, lumbar region without neurogenic claudication; G89.29 Other chronic pain; I10 Essential (primary) hypertension; M19.90 Unspecified osteoarthritis, unspecified site; Z98.890 Other specified postprocedural states; Z79.899 Other long term (current) drug therapy; Z87.891 Personal history of nicotine dependence; Z79.01 Long term (current) use of anticoagulants; Z88.0 Allergy status to penicillin; Z88.8 Allergy status to other drugs, medicaments and biological substances

== ENCOUNTER → 2020-10-25 | Outpatient (CLI) | payer OTHER ==
[~2020-10-25] MED LIST changes: +ROXICODONE5 MG PO
== END ==
LOC: SJCVC 09:03
PROVIDERS: ATTEND Internal Medicine
DX: I42.8 Other cardiomyopathies (principal); I11.0 Hypertensive heart disease with heart failure; I50.20 Unspecified systolic (congestive) heart failure; M79.604 Pain in right leg; M79.605 Pain in left leg; I48.91 Unspecified atrial fibrillation; E78.5 Hyperlipidemia, unspecified; E78.1 Pure hyperglyceridemia; R05 Cough; I25.10 Atherosclerotic heart disease of native coronary artery without angina pectoris; Z79.899 Other long term (current) drug therapy

== ENCOUNTER → 2020-10-30 | Outpatient (CLI) | payer OTHER ==
[~2020-10-30] VITALS: Ht 188 cm; Wt 124.7 kg
--- NOTE | ~2020-10-30 | HPC ---
[facility] [place] [address] PAIN MANAGEMENT CONSULTATION Name: MUKUL VENTURA Room #: REG [facility] GregorioSeanSean#: [id number] Admission: 10/30/20 Attend Phys: Valente Tristan DO Discharge: Date of : 51 Report #: [id number] THIS REPORT FOR: cc: Renu Salas MD, Cora A. MD Johnson, James E. DO ~ DATE OF SERVICE: 10/30/2020 REFERRING PHYSICIAN: Renu Salas MD CHIEF COMPLAINT: Low back pain, left lower extremity pain with paresthesias. HISTORY OF PRESENT ILLNESS: As you know, the patient is a 65-year-old male with longstanding history of low back pain and left lower extremity pain due to lumbar radiculopathy. The patient has recently been seen by Neurosurgery and is planning to undergo surgery on 11/20/2020. The patient has had corrections to his tracheal stenosis and will likely be released to go ahead and move forward with surgery by the end of the year. He is tentatively set a schedule for surgery either on ____. The patient is being seen at . He was just seen by the neurosurgery team and advised of the timing of the surgery, but he was not provided any analgesic treatment. He returns to our clinic to undergo a lumbar epidural injection, but unfortunately did not discontinue his anticoagulant. This precludes us from providing an injection until which time he can come off the anticoagulant, though given the fact the patient is having surgery on 11/20, we would not recommend proceeding with an injection. He returns to discuss options for treatment. He is placing current pain score at 8/10. ALLERGIES: PENICILLIN, OXYCODONE, FENTANYL, HYDROMORPHONE AND MORPHINE. CURRENT MEDICATIONS: Furosemide 20 mg once a day, digoxin 0.125 mg once a day, lisinopril 10 mg per day, carvedilol 25 mg per day, multivitamin 1 tablet per day, ipratropium bromide every 4 hours, Xarelto 10 mg per day, tramadol 50 mg p.o. q.6 hours p.r.n. for pain. SOCIAL HISTORY: The patient is a reformed smoker, quit in 1999. Denies IV or illicit drug use. Admits to 1 alcohol beverage per day. He is and unaccompanied at today's visit. IMAGING: No new imaging available. PQRS: The patient has known arthritic changes of the lumbar spine, bilateral hips, but suffers from no rheumatoid arthritis. He is placing his current pain score at up to 10/10. He is not a fall risk, has not had a fall in last 3 months. He is on blood thinners in the form of Xarelto and has not discontinued the medication. He is treated for hypertension. He is on chronic opioids, has a low opioid addiction potential based on the assessment [place] [address] PAIN MANAGEMENT CONSULTATION Name: MUKUL VENTURA Leti Room #: REG [facility]#: [id number] Admission: 10/30/20 Attend Phys: Valente Tristan DO Discharge: Date of : 51 Report #: [id number] functional assessment and pain impact at 37/70, moderate interference. PHYSICAL EXAMINATION: VITAL SIGNS: Blood pressure 120/66, pulse 76, respiratory rate 20 and unlabored. The patient is 97% on room air, height 6 feet 2 inches tall, weight 275 pounds, BMI calculated 35.3. GENERAL: Well-developed, well-nourished, well-hydrated exogenously obese 65-year-old male appearing stated age. He is placing current pain score at 9-10/10. HEENT: Normocephalic and atraumatic. Pupils are round. The patient is wearing a mask in compliance with COVID-19 regulations. EXTREMITIES: Show mild clubbing, no cyanosis, no edema. MUSCULOSKELETAL: Lower extremity strength is symmetrical, though there is giveaway strength noted with hip flexion, knee extension on the left when compared to the right due to pain generation. Gait is antalgic favoring left lower extremity over right. Stance is slightly forward flexed to lumbar spine with moderate loss of lordotic curvature. Muscle bulk and tone is equal and symmetrical. He remains intact to light touch. ASSESSMENT: 1. Symptomatic lumbar radiculopathy. 2. Severe central canal stenosis of lumbar spine. 3. Displacement of lumbar intervertebral disk with radiculopathy. 4. Lumbosacral spondylosis with radiculopathy. 5. Lumbar degeneration. 6. Chronic intractable pain. PLAN: 1. The patient has returned today in followup visit, unfortunately not having discontinued his Xarelto in preparation for an epidural injection. He was hopeful to undergo the procedure today, but he has been taken his Xarelto last evening, which precludes us from having the patient undergo an injection at least for 3 days given the holidays, this injection could not even be provided until next week. This places us to close to his surgical time and we would not recommend undergoing injections at this juncture. We recommend he continue on his Xarelto and follow the instructions of the Neurosurgery team to come off the medication in preparation for surgery on 11/20/2020. To assist in pain control, we have been requested to offer him pain medications. We have agreed to provide the patient with a temporary dosing of medication to reach his surgical timeframe. We will not be involved in postoperative pain control nor we will be restarting the patient on any type of medication after surgery. He will need to follow up with his neurosurgeon and primary care if further doses of medication will be necessary. The fact that he is undergoing surgery should improve his lumbar radicular symptoms and he will no longer need those medications he could certainly return if epidural injections are necessary [facility] [address] [place] [address] PAIN MANAGEMENT CONSULTATION Name: LORENZOMUKUL Room #: REG [facility]#: [id number] Admission: 10/30/20 Attend Phys: Valente Tristan DO Discharge: Date of : 51 Report #: [id number] post-procedurally though this should not be necessary if surgery is performed to address his spinal stenosis. I have advised the patient is a one-time dosing of opioid medication. This is only being provided as we cannot give an epidural injection today given the proximity to his surgery and the fact that he has not discontinued his anticoagulant. We will be giving him the following dose of medication for one time prescription. 2. The patient was provided prescription of oxycodone 5 mg dose 1 tablet p.o. t.i.d. Again, the patient #70 tablets, which is providing him with enough medication to reach his surgical 11/20/2020. The patient indicates in his history that he has an ALLERGY TO OXYCODONE, though he has been given this medication just recently and reported good efficacy. I believe this may have been a side effect. He may have experienced though I do not feel he had had any allergic reaction as he is just taking 30 of those tablets to address post-surgical pain from his tracheal stenosis revision. Prescription was sent via e-scribe to local pharmacy. 3. We wish to thank the referring physician, Dr. Renu Salas for the opportunity to see the patient in consultation. We wish him luck with his neurosurgery procedure scheduled with [facility]. He will be following up with [facility] for postoperative pain control. If further medication treatment is necessary, they can refer the patient through the [facility] system to their pain management clinic. We would be more than willing to see the patient back in followup for injections if necessary. By: [id number] Valente Tristan DO /nt
[2020-10-30 14:40] VITALS: BP 120/66
--- NOTE | 2020-10-30 14:49 | NUR ---
Pain Clinic Assessment: 1. History of Osteoarthritis: Not Applicable History of Rheumatoid Arthritis: Not Applicable 2. Height: 6 ft. 2 in. 188.0 cm. Weight: 275.0 lb. oz. 124.740 kg. Patient's BMI: 35.3 3. Vital Signs: BP: 120/66 Pulse: 76 Resp: 20 Temp: 02 Sat: 97 ECG Mon: 4. Pain Intensity: 9 TO 10 5. Fall Risk: Dizziness: N Needs help standing or walking: N Fallen in the last 3 months: N Fall risk comments: 6. Patient on Blood Thinner: XARELTO 7. History of Hypertension: Y 8. Opioid Therapy greater than 6 weeks: Y Opiate Contract Signed: 9. Risk Assessment Tool Provided: LOW-0 10. Functional Assessment Tool: 37/ 11. Recreational Drug Use: Never Drug Type: Tobacco Use: Never Smoker Tobacco Type: Amount or Packs/day: How Many Years: Alcohol Use: No Frequency: Quant:
== END ==
LOC: PAIN 07:01
PROVIDERS: ATTEND Anesthesiology Pain Medicine
DX: M47.27 Other spondylosis with radiculopathy, lumbosacral region (principal); M48.061 Spinal stenosis, lumbar region without neurogenic claudication; G89.29 Other chronic pain; Z79.891 Long term (current) use of opiate analgesic; Z79.899 Other long term (current) drug therapy; Z88.0 Allergy status to penicillin; Z88.8 Allergy status to other drugs, medicaments and biological substances; Z88.5 Allergy status to narcotic agent

== ENCOUNTER → 2021-06-17 | Outpatient (CLI) | payer OTHER | LOC: SJCVC 08:55 | PROVIDERS: ATTEND Internal Medicine | DX: I42.0 Dilated cardiomyopathy (principal); I11.0 Hypertensive heart disease with heart failure; I50.20 Unspecified systolic (congestive) heart failure; Z01.810 Encounter for preprocedural cardiovascular examination; I48.0 Paroxysmal atrial fibrillation; R60.0 Localized edema; I42.8 Other cardiomyopathies; Z79.899 Other long term (current) drug therapy; Z88.5 Allergy status to narcotic agent ==

== ENCOUNTER → 2021-12-19 | Outpatient (CLI) | payer OTHER | LOC: SJCVC 09:02 | PROVIDERS: ATTEND Internal Medicine | DX: R94.31 Abnormal electrocardiogram [ECG] [EKG] (principal); I45.2 Bifascicular block; I48.91 Unspecified atrial fibrillation; I42.0 Dilated cardiomyopathy; I11.0 Hypertensive heart disease with heart failure; I50.20 Unspecified systolic (congestive) heart failure; E78.5 Hyperlipidemia, unspecified; F41.9 Anxiety disorder, unspecified; I25.10 Atherosclerotic heart disease of native coronary artery without angina pectoris; F32.9 Major depressive disorder, single episode, unspecified; J90 Pleural effusion, not elsewhere classified; G62.9 Polyneuropathy, unspecified; Z95.810 Presence of automatic (implantable) cardiac defibrillator; Z79.899 Other long term (current) drug therapy; Z82.49 Family history of ischemic heart disease and other diseases of the circulatory system; Z88.5 Allergy status to narcotic agent ==